=== PATIENT | male | born 1965 | race African-American/Black ===

== ENCOUNTER 2018-03-19 13:30 | Inpatient (IN) | payer BC, OTHER ==
[2018-03-19 16:36] VITALS: BMI 29.2
--- NOTE | 2018-03-19 21:03 | HP ---
COWS - Scale Resting Pulse: 1= [place] 81-100 Sweatin= Chills/Flushing Restless Observation: 5= Unable to Sit Still Pupil Size: 0= Normal to Room Light Bone or Joint Aches: 4=Acute Joint/Muscle Pain Runny Nose/ Eye Tearin= Runny Nose/Eyes GI Upset > 30mins: 2= Nausea/Diarrhea Tremor Observation: 2= Slight Tremor Visible Yawning Observation: 0= None Anxiety or Irritability: 2=Irritable/Anxious Goose Flesh Skin: 3=Piloerection COWS Score: 22 CIWA Score - CIWA Score Nausea/Vomitin Muscle Tremors: 3 Anxiety: 4-Mod. Anxious/Guarded Agitation: 4-Moderately Restless Paroxysmal Sweats: 3 Orientation: 2-Disoriented Date<2 days Tacttile Disturbances: 0-None Auditory Disturbances: 0-None Visual Disturbances: 0-None Headache: 2-Mild CIWA-Ar Total Score: 21 Admission ROS S - HPI Chief Complaint: C/O WITHDRAWAL SX'S. SEEKING DETO FROM ALCOHOL AND HEROIN Allergies/Adverse Reactions: Allergies Allergy/AdvReac Type Severity Reaction Status Date / Time pork derived (porcine) Allergy Verified 03/19/18 16:50 History of Present Illness: 52 Y.O. MLAE WITH ALCOHOLISM AND HEROIN DEPENDENCE HERE FOR DETOX. CLIENT IS KNOWN TO THIS PROGRAM, LAST HERE 2010. REPORTS LAST DETOX EARLIER THIS YEAR AT [facility]. REPORTS LONGEST CLEAN TIME 9 YEARS RELAPSING 1 YEAR AGO. CLIENT WAS REFERRED BY [facility] AFTER PRESENTING THERE FOR DETOX. C/O WITHDRAWAL SX'S. DENIES SOB, C.P., SEIZURE D/O, PAST/PRESENT-SI. REPORTS HX/O BLACK OUTS PMHX:DOES NOT WANT TO SHARE PSYCH: DENIES Exam Limitations: No Limitations - Ebola screening Have you traveled outside of the country in the last 21 days: No Have you had contact with anyone from an Ebola affected area: No Have you been sick,other than usual withdrawal symptoms: No Do you have a fever: No - Review of Systems Constitutional: Chills, Loss of Appetite, Night Sweats, Changes in sleep EENT: reports: Dental Problems (MISSINBG TEETH) Respiratory: reports: No Symptoms reported Cardiac: reports: No Symptoms Reported GI: reports: Constipated, Nausea, Poor Fluid Intake : reports: No Symptoms Reported Musculoskeletal: reports: Joint Pain (R HIP) Integumentary: reports: Change in Hair/Nails, Dryness, Flushing, Rash Neuro: reports: No Symptoms reported Endocrine: reports: No Symptoms Reported Hematology: reports: No Symptoms Reported Psychiatric: reports: No Sypmtoms Reported Other Systems: Reviewed and Negative Patient History - Patient Medical History Hx Anemia: No Hx Asthma: No Hx Chronic Obstructive Pulmonary Disease (COPD): No Hx Cancer: No Hx Cardiac Disorders: No Hx Congestive Heart Failure: No Hx Hypertension: No Hx Hypercholesterolemia: No Hx Pacemaker: No HX Cerebrovascular Accident: No Hx Seizures: No Hx Diabetes: No Hx Gastrointestinal Disorders: No Hx Liver Disease: No Hx Genitourinary Disorders: No Hx Sexually Transmitted Disorders: No Hx Renal Disease (ESRD): No Hx Thyroid Disease: No Hx Human Immunodeficiency Virus (HIV): No Hx Hepatitis C: No Hx Depression: Yes Hx Suicide Attempt: No Hx Bipolar Disorder: No Hx Schizophrenia: No Other Medical History: DENIES - Patient Surgical History Past Surgical History: No Anesthesia Reaction: No - Smoking Cessation Smoking history: Current every day smoker Have you smoked in the past 12 months: Yes Aproximately how many cigarettes per day: 20 Cigars Per Day: 0 Hx Chewing Tobacco Use: No Initiated information on smoking cessation: Yes 'Breaking Loose' booklet given: 03/19/18 - Substances Abused Heroin Route: SNIFF Frequency: Daily Amount used: 6 BAGS Age of first use: 18 Date of Last Use: 03/19/18 Alcohol Route: Oral Frequency: Daily Amount used: 2/6 PACKS Age of first use: 9 Date of Last Use: 03/19/18 Family Disease History - Family Disease History Family History: Denies Admission Physical Exam S - Vital Signs Vital Signs: Vital Signs - 24 hr 03/19/18 16:33 Temperature 98.1 F Pulse Rate 91 H Respiratory 20 Rate Blood Pressure 148/84 - Physical General Appearance: Yes: Appropriately Dressed, Mild Distress, Tremorous, Sweating HEENTM: Yes: EOMI, Normocephalic, Normal Voice, BETTY, Pharynx Normal, Other ( DRY MM) Respiratory: Yes: Chest Non-Tender, Lungs Clear, Normal Breath Sounds, No Respiratory Distress, No Accessory Muscle Use Neck: Yes: No masses,lesions,Nodules, Supple, Trachea in good position Breast: Yes: Breast Exam Deferred Cardiology: Yes: Regular Rhythm, Regular Rate, S1, S2 Abdominal: Yes: Non Tender, Soft, Increased Bowel Sounds Genitourinary: Yes: Other (NO C/O) Back: Yes: Normal Inspection Musculoskeletal: Yes: full range of Motion, Gait Steady Extremities: Yes: Normal Capillary Refill, Normal Range of Motion, Non-Tender, Tremors, Other (LEFT THUMB ABRASION) Neurological: Yes: Alert, Motor Strength 5/5, Disoriented (TO DATE), Depressed Affect Integumentary: Yes: Warm, Moist, Other (FORMICATION) Lymphatic: Yes: Within Normal Limits - Diagnostic (1) Alcohol dependence with uncomplicated withdrawal Current Visit: Yes Status: Acute (2) Opioid dependence with withdrawal Current Visit: Yes Status: Acute (3) Cocaine abuse, uncomplicated Current Visit: Yes Status: Acute (4) Cannabis abuse, uncomplicated Current Visit: Yes Status: Acute (5) Nicotine dependence Current Visit: Yes Status: Acute (6) Dry mucous membranes Current Visit: Yes Status: Acute (7) At risk for dehydration due to poor fluid intake Current Visit: Yes Status: Acute (8) Substance induced mood disorder Current Visit: Yes Status: Acute Cleared for Admission [facility] - Detox or Rehab [facility] Level of Care: Medically Managed Detox Regimen/Protocol: Methadone/Librium Claeared for Rehab Admission: No [facility] Breath Alcohol Content Breath Alcohol Content: 0 Urine Drug Screen - Results Drug Screen Negative: No Urine Drug Screen Results: GRIS-Cocaine, OPI-Opiates
[2018-03-19] MEDS ORDERED: chlordiazePOXIDE HCL 25 MG CAPSULE PO PRN (21:18)
[2018-03-19] MEDS ORDERED: METHADONE HCL 10 MG TABLET (FOR DETOX USE ONLY) PO ONE ×2 (21:18→23:00)
[2018-03-19] MEDS ORDERED: guaiFENesin/D-METHORPHAN HB 10 ML UNIT-DOSE CUPS PO PRN (21:18)
[2018-03-19] MEDS ORDERED: NICOTINE POLACRILEX 2 MG GUM BC PRN (21:18)
[2018-03-19] MEDS ORDERED: MAGNESIUM HYDROX 2400MG/30ML ORAL SUSPENSION 30 ML CUP PO PRN (21:18)
[2018-03-19] MEDS ORDERED: MAGNESIUM CITRATE 300 ML BOTTLE PO PRN (21:18)
[2018-03-19] MEDS ORDERED: P-EPHED 60MG/TRIPROLIDI 2.5MG TABLET PO PRN (21:18)
[2018-03-19] MEDS ORDERED: MENTHOL/PHENOL 1 EACH UD MM PRN (21:18)
[2018-03-19] MEDS ORDERED: ACETAMINOPHEN 325 MG TABLET (FP) PO PRN (21:18)
[2018-03-19] MEDS ORDERED: IBUPROFEN 400 MG TABLET (FP) PO PRN (21:18)
[2018-03-19] MEDS ORDERED: LOPERAMIDE HCL 2 MG CAPSULE PO PRN (21:18)
[2018-03-19] MEDS ORDERED: MELATONIN 5 MG TABLETS PO PRN (22:00)
[2018-03-19] MEDS: chlordiazePOXIDE HCL 25 MG CAPSULE PO SCH (22:21)
[2018-03-19] MEDS: THIAMINE HCL 100 MG TABLET (FP) PO SCH (22:22)
[2018-03-20 01:17] LABS: URINE APPEARANCE CLEAR; URINE BILIRUBIN NEGATIVE (<2.0 mg/dL); URINE COLOR YELLOW; URINE GLUCOSE (UA) NEGATIVE (NEGATIVE); URINE KETONE NEGATIVE (NEGATIVE); URINE LEUK ESTERASE NEGATIVE (NEGATIVE); URINE NITRITE NEGATIVE (NEGATIVE); URINE PROTEIN NEGATIVE (NEGATIVE); URINE UROBILINOGEN NEGATIVE mg/dL (0.2-1.0)
[2018-03-20] MEDS: chlordiazePOXIDE HCL 25 MG CAPSULE PO SCH ×4 (05:33→22:14)
[2018-03-20] MEDS ORDERED: METHADONE HCL 10 MG TABLET (FOR DETOX USE ONLY) PO SCH (10:00)
[2018-03-20] MEDS: PRENATAL VITAMINS W/ FOLIC ACID TABLET (FP) PO SCH (10:32)
[2018-03-20] MEDS: BACITRACIN 0.9 GM PACKET TP SCH (10:32)
[2018-03-20 10:57] LABS: CHLORIDE 105 mmol/L (98-107); SODIUM 141 mmol/L (136-145)
[2018-03-20 11:13] LABS: ALBUMIN 3.1 g/dl (3.4-5.0); ALK PHOS 47 U/L (45-117); ANION GAP 9 MMOL/L (8-16); BILIRUBIN,TOTAL 0.3 mg/dL (0.2-1.0); BLOOD UREA NITROGEN 14 mg/dL (7-18); CALCIUM 8.1 mg/dL (8.5-10.1); CO2 27 mmol/L (21-32); GLUCOSE,RANDOM 91 mg/dL (74-106); SGOT/AST 71 U/L (15-37); SGPT/ALT 45 U/L (12-78); TOT PROT 6.4 g/dl (6.4-8.2)
[2018-03-20 11:36] LABS: HEMATOCRIT 38.1 % (35.4-49); HEMOGLOBIN 12.7 GM/dL (11.7-16.9); MCH 28.7 pg (25.7-33.7); MCHC 33.4 g/dl (32.0-35.9); MEAN CELL VOLUME 86.1 fl (80-96); MEAN PLT VOLUME 7.3 fl (7.5-11.1); PLATELET COUNT 255 K/MM3 (134-434); RBC 4.43 M/mm3 (4.00-5.60); RDW 14.8 % (11.9-15.9); WHITE BLOOD COUNT 7.2 K/mm3 (4.0-10.0)
--- NOTE | 2018-03-20 12:43 | PN ---
S CIWA - CIWA Score Nausea/Vomitin-No Nausea/No Vomiting Muscle Tremors: 4-Moderate,w/Arms Extend Anxiety: 4-Mod. Anxious/Guarded Agitation: 4-Moderately Restless Paroxysmal Sweats: 1-Minimal Palms Moist Orientation: 0-Oriented Tacttile Disturbances: 0-None Auditory Disturbances: 0-None Visual Disturbances: 0-None Headache: 0-None Present CIWA-Ar Total Score: 13 BHS COWS - Scale Resting Pulse: 2= [place] 101-120 Sweatin= Chills/Flushing Restless Observation: 3= Extraneous Movement Pupil Size: 0= Normal to Room Light Bone or Joint Aches: 4=Acute Joint/Muscle Pain Runny Nose/ Eye Tearin= None GI Upset > 30mins: 0= None Tremor Observation of Outstretched Hands: 2= Slight Tremor Visible Yawning Observation: 0= None Anxiety or Irritability: 2=Irritable/Anxious Goose Flesh Skin: 0=Smooth Skin COWS Score: 14 S Progress Note (SOAP) Subjective: ANXIETY,SLIGHT TREMORS, SWEATS. ALERT O X 3. OOB AMBULATING WIT STEADY GAIT. Objective: 03/20/18 12:45 Vital Signs 03/20/18 03/20/18 03/20/18 06:21 06:30 10:31 Temperature 98.1 F 98.1 F Pulse Rate 101 H 101 H Respiratory 18 18 20 Rate Blood Pressure 132/78 118/71 Laboratory Tests 03/20/18 03/20/18 03/20/18 00:40 06:00 06:00 WBC 7.2 RBC 4.43 Hgb 12.7 Hct 38.1 MCV 86.1 MCH 28.7 MCHC 33.4 RDW 14.8 Plt Count 255 MPV 7.3 L Sodium 141 Potassium 4.0 Chloride 105 Carbon Dioxide 27 Anion Gap 9 BUN 14 Creatinine 1.0 Creat Clearance w eGFR > 60 Random Glucose 91 Calcium 8.1 L Total Bilirubin 0.3 AST 71 H ALT 45 Alkaline Phosphatase 47 Total Protein 6.4 Albumin 3.1 L Urine Color Yellow Urine Appearance Clear Urine pH 5.0 Ur Specific [place] 1.014 Urine Protein Negative Urine Glucose (UA) Negative Urine Ketones Negative Urine Blood Negative Urine Nitrite Negative Urine Bilirubin Negative Urine Urobilinogen Negative Ur Leukocyte Esterase Negative Assessment: 03/20/18 12:46 WITHDRAWAL SX Plan: CONTINUE DETOX
[2018-03-20] MEDS: NICOTINE 21 MG/24 HOURS TOPICAL PATCH TD SCH (13:36)
--- NOTE | 2018-03-20 13:47 | EKG ---
Test Reason : Blood Pressure : / mmHG Vent. Rate : 094 BPM Atrial Rate : 094 BPM P-R Int : 132 ms QRS Dur : 086 ms QT Int : 366 ms P-R-T Axes : 063 058 021 degrees QTc Int : 457 ms NORMAL SINUS RHYTHM NONSPECIFIC T WAVE ABNORMALITY ABNORMAL ECG WHEN COMPARED WITH ECG OF 19-MAR-2018 22:01, NO SIGNIFICANT CHANGE WAS FOUND Confirmed by ANABEL MUNSON MD ([id number]) on 03/20/2018 1:47:08 PM Referred By: Confirmed By:ANABEL MUNSON MD
--- NOTE | 2018-03-20 13:48 | EKG ---
Test Reason : Blood Pressure : / mmHG Vent. Rate : 095 BPM Atrial Rate : 095 BPM P-R Int : 126 ms QRS Dur : 086 ms QT Int : 354 ms P-R-T Axes : 063 065 029 degrees QTc Int : 444 ms NORMAL SINUS RHYTHM NONSPECIFIC T WAVE ABNORMALITY ABNORMAL ECG NO PREVIOUS ECGS AVAILABLE Confirmed by JEIMY EVANS, ANABEL ([id number]) on 03/20/2018 1:48:25 PM Referred By: Confirmed By:ANABEL MUNSON MD
[2018-03-20] MEDS: MAG HYDROX/AL HYDROX/SIMETH 30 ML UNIT-DOSE CUP PO PRN (14:01)
--- NOTE | 2018-03-20 16:32 | CONSULT ---
[facility] Psychiatric Consult - Data Date of interview: 03/20/18 Admission source: [facility] Identifying data: Patient is a 52 year old male, father of one, unemployed (denies receiving financial assistance), and is currently homeless. This is patient's first admission to detox at [facility]. Pt. admitted to for opiate dependence. Substance Abuse History: Smoking Cessation. Smoking history: Current every day smoker. Have you smoked in the past 12 months: Yes. Aproximately how many cigarettes per day: 20. Cigars Per Day: 0. Hx Chewing Tobacco Use: No. Initiated information on smoking cessation: Yes. 'Breaking Loose' booklet given : 03/19/18. - Substances Abused. Heroin. Route: SNIFF. Frequency: Daily. Amount used: 6 BAGS. Age of first use: 18. Date of Last Use: 03/19/18. Alcohol. Route: Oral. Frequency: Daily. Amount used: 2/6 PACKS. Age of first use: 9. Date of Last Use: 03/19/18 Medical History: denies. Psychiatric History: Pt. denies h/o psychiatric hospitalization, outpatient care , and suicide attempt. Physical/Sexual Abuse/Trauma History: denies. Mental Status Exam - Mental Status Exam Alert and Oriented to: Time, Place, Person Cognitive Function: Good Patient Appearance: Well Groomed Mood: Withdrawn, Euthymic Affect: Mood Congruent Patient Behavior: Fatigued, Guarded, Cooperative Speech Pattern: Appropriate Voice Loudness: Normal Thought Process: Goal Oriented Thought Disorder: Not Present Hallucinations: Denies Suicidal Ideation: Denies Homicidal Ideation: Denies Insight/Judgement: Poor Sleep: Fair Appetite: Fair Muscle strength/Tone: Normal Gait/Station: Normal Psychiatric Findings - Problem List ([place] 1, 2,3) (1) Alcohol dependence with uncomplicated withdrawal Current Visit: Yes Status: Acute (2) Cocaine dependence, uncomplicated Current Visit: Yes Status: Acute (3) Opioid dependence with withdrawal Current Visit: Yes Status: Acute (4) Substance induced mood disorder Current Visit: Yes Status: Acute - Initial Treatment Plan Initial Treatment Plan: Psychoeducation provided. Detoxification in progress. Observation.
[2018-03-20] MEDS: THIAMINE HCL 100 MG TABLET (FP) PO SCH (22:14)
[2018-03-21] MEDS: chlordiazePOXIDE HCL 25 MG CAPSULE PO SCH ×3 (04:35→17:54)
[2018-03-21] MEDS: PRENATAL VITAMINS W/ FOLIC ACID TABLET (FP) PO SCH (11:00)
[2018-03-21] MEDS: BACITRACIN 0.9 GM PACKET TP SCH (11:00)
[2018-03-21] MEDS: NICOTINE 21 MG/24 HOURS TOPICAL PATCH TD SCH (11:01)
[2018-03-21] MEDS: METHADONE HCL 5 MG TABLET (FOR DETOX USE ONLY) PO SCH (11:01)
--- NOTE | 2018-03-21 14:58 | PN ---
S CIWA - CIWA Score Nausea/Vomitin-No Nausea/No Vomiting Muscle Tremors: 4-Moderate,w/Arms Extend Anxiety: 4-Mod. Anxious/Guarded Agitation: 4-Moderately Restless Paroxysmal Sweats: 1-Minimal Palms Moist Orientation: 0-Oriented Tacttile Disturbances: 0-None Auditory Disturbances: 0-None Visual Disturbances: 0-None Headache: 0-None Present CIWA-Ar Total Score: 13 BHS COWS - Scale Resting Pulse: 1= [place] 81-100 Sweatin= Chills/Flushing Restless Observation: 3= Extraneous Movement Pupil Size: 0= Normal to Room Light Bone or Joint Aches: 4=Acute Joint/Muscle Pain Runny Nose/ Eye Tearin= Nasal Congestion GI Upset > 30mins: 1= Stomach Cramp Tremor Observation of Outstretched Hands: 1= Tremor [place], Not Seen Yawning Observation: 1= 1-2x During Session Anxiety or Irritability: 2=Irritable/Anxious Goose Flesh Skin: 0=Smooth Skin COWS Score: 15 S Progress Note (SOAP) Subjective: SLIGHT ANXIETY,SWEATS. OOB, NAD. Objective: 03/21/18 15:01 Vital Signs 03/21/18 03/21/18 09:48 13:47 Temperature 97.5 F L 97.0 F L Pulse Rate 102 H 99 H Respiratory 20 20 Rate Blood Pressure 111/61 140/92 Laboratory Tests 03/20/18 03/20/18 03/20/18 00:40 06:00 06:00 WBC 7.2 RBC 4.43 Hgb 12.7 Hct 38.1 MCV 86.1 MCH 28.7 MCHC 33.4 RDW 14.8 Plt Count 255 MPV 7.3 L Sodium 141 Potassium 4.0 Chloride 105 Carbon Dioxide 27 Anion Gap 9 BUN 14 Creatinine 1.0 Creat Clearance w eGFR > 60 Random Glucose 91 Calcium 8.1 L Total Bilirubin 0.3 AST 71 H ALT 45 Alkaline Phosphatase 47 Total Protein 6.4 Albumin 3.1 L Urine Color Yellow Urine Appearance Clear Urine pH 5.0 Ur Specific [place] 1.014 Urine Protein Negative Urine Glucose (UA) Negative Urine Ketones Negative Urine Blood Negative Urine Nitrite Negative Urine Bilirubin Negative Urine Urobilinogen Negative Ur Leukocyte Esterase Negative RPR Titer 03/20/18 06:00 WBC RBC Hgb Hct MCV MCH MCHC RDW Plt Count MPV Sodium Potassium Chloride Carbon Dioxide Anion Gap BUN Creatinine Creat Clearance w eGFR Random Glucose Calcium Total Bilirubin AST ALT Alkaline Phosphatase Total Protein Albumin Urine Color Urine Appearance Urine pH Ur Specific [place] Urine Protein Urine Glucose (UA) Urine Ketones Urine Blood Urine Nitrite Urine Bilirubin Urine Urobilinogen Ur Leukocyte Esterase RPR Titer Nonreactive Assessment: 03/21/18 15:01 WITHDRAWAL SX Plan: CONTINUE DETOX
[2018-03-21] MEDS: chlordiazePOXIDE 5 MG CAPSULE PO SCH (22:08)
[2018-03-21] MEDS: THIAMINE HCL 100 MG TABLET (FP) PO SCH (22:08)
[2018-03-22] MEDS: chlordiazePOXIDE 5 MG CAPSULE PO SCH ×3 (06:01→18:27)
[2018-03-22] MEDS: MAG HYDROX/AL HYDROX/SIMETH 30 ML UNIT-DOSE CUP PO PRN (10:27)
[2018-03-22] MEDS: BACITRACIN 0.9 GM PACKET TP SCH (10:49)
[2018-03-22] MEDS: NICOTINE 21 MG/24 HOURS TOPICAL PATCH TD SCH (10:50)
[2018-03-22] MEDS: PRENATAL VITAMINS W/ FOLIC ACID TABLET (FP) PO SCH (10:50)
[2018-03-22] MEDS: METHADONE HCL 5 MG TABLET (FOR DETOX USE ONLY) PO SCH (10:50)
--- NOTE | 2018-03-22 11:04 | PN ---
BHS Progress Note (SOAP) Subjective: ANXIETY,SWEATS,FATIGUE. DETOX PROCEEDING WELL PER PROTOCOL. Objective: 03/22/18 11:03 Vital Signs 03/22/18 03/22/18 03/22/18 03:30 06:53 09:46 Temperature 98.3 F 97.1 F L Pulse Rate 90 107 H Respiratory 18 18 20 Rate Blood Pressure 133/79 139/88 Laboratory Tests 03/20/18 03/20/18 03/20/18 00:40 06:00 06:00 WBC 7.2 RBC 4.43 Hgb 12.7 Hct 38.1 MCV 86.1 MCH 28.7 MCHC 33.4 RDW 14.8 Plt Count 255 MPV 7.3 L Sodium 141 Potassium 4.0 Chloride 105 Carbon Dioxide 27 Anion Gap 9 BUN 14 Creatinine 1.0 Creat Clearance w eGFR > 60 Random Glucose 91 Calcium 8.1 L Total Bilirubin 0.3 AST 71 H ALT 45 Alkaline Phosphatase 47 Total Protein 6.4 Albumin 3.1 L Urine Color Yellow Urine Appearance Clear Urine pH 5.0 Ur Specific [place] 1.014 Urine Protein Negative Urine Glucose (UA) Negative Urine Ketones Negative Urine Blood Negative Urine Nitrite Negative Urine Bilirubin Negative Urine Urobilinogen Negative Ur Leukocyte Esterase Negative RPR Titer 03/20/18 06:00 WBC RBC Hgb Hct MCV MCH MCHC RDW Plt Count MPV Sodium Potassium Chloride Carbon Dioxide Anion Gap BUN Creatinine Creat Clearance w eGFR Random Glucose Calcium Total Bilirubin AST ALT Alkaline Phosphatase Total Protein Albumin Urine Color Urine Appearance Urine pH Ur Specific [place] Urine Protein Urine Glucose (UA) Urine Ketones Urine Blood Urine Nitrite Urine Bilirubin Urine Urobilinogen Ur Leukocyte Esterase RPR Titer Nonreactive Assessment: 03/22/18 11:04 WITHDRAWAL SX Plan: CONTINUE DETOX
[2018-03-22] MEDS: chlordiazePOXIDE HCL 10 MG CAPSULE PO SCH (22:34)
[2018-03-22] MEDS: THIAMINE HCL 100 MG TABLET (FP) PO SCH (22:34)
[2018-03-23] MEDS: chlordiazePOXIDE HCL 10 MG CAPSULE PO SCH ×3 (05:51→17:37)
[2018-03-23] MEDS ORDERED: METHADONE HCL 10 MG TABLET (FOR DETOX USE ONLY) PO SCH (10:00)
[2018-03-23] MEDS: PRENATAL VITAMINS W/ FOLIC ACID TABLET (FP) PO SCH (10:04)
[2018-03-23] MEDS: BACITRACIN 0.9 GM PACKET TP SCH (10:04)
[2018-03-23] MEDS: NICOTINE 21 MG/24 HOURS TOPICAL PATCH TD SCH (10:05)
[2018-03-23] MEDS: MAG HYDROX/AL HYDROX/SIMETH 30 ML UNIT-DOSE CUP PO PRN (13:40)
--- NOTE | 2018-03-23 14:55 | PN ---
BHS Progress Note (SOAP) Subjective: Denies any complaints, appears anxious Objective: 03/23/18 14:55 Last Vital Signs Temp Pulse Resp BP Pulse Ox 97.2 F L 76 18 133/88 03/23/18 13:13 03/23/18 13:13 03/23/18 13:13 03/23/18 13:13 Laboratory Tests 03/20/18 03/20/18 03/20/18 00:40 06:00 06:00 WBC 7.2 RBC 4.43 Hgb 12.7 Hct 38.1 MCV 86.1 MCH 28.7 MCHC 33.4 RDW 14.8 Plt Count 255 MPV 7.3 L Sodium 141 Potassium 4.0 Chloride 105 Carbon Dioxide 27 Anion Gap 9 BUN 14 Creatinine 1.0 Creat Clearance w eGFR > 60 Random Glucose 91 Calcium 8.1 L Total Bilirubin 0.3 AST 71 H ALT 45 Alkaline Phosphatase 47 Total Protein 6.4 Albumin 3.1 L Urine Color Yellow Urine Appearance Clear Urine pH 5.0 Ur Specific [place] 1.014 Urine Protein Negative Urine Glucose (UA) Negative Urine Ketones Negative Urine Blood Negative Urine Nitrite Negative Urine Bilirubin Negative Urine Urobilinogen Negative Ur Leukocyte Esterase Negative RPR Titer 03/20/18 06:00 WBC RBC Hgb Hct MCV MCH MCHC RDW Plt Count MPV Sodium Potassium Chloride Carbon Dioxide Anion Gap BUN Creatinine Creat Clearance w eGFR Random Glucose Calcium Total Bilirubin AST ALT Alkaline Phosphatase Total Protein Albumin Urine Color Urine Appearance Urine pH Ur Specific [place] Urine Protein Urine Glucose (UA) Urine Ketones Urine Blood Urine Nitrite Urine Bilirubin Urine Urobilinogen Ur Leukocyte Esterase RPR Titer Nonreactive Labs reviewed Assessment: 03/23/18 14:55 Withdrawal symptoms Plan: Continue detox
[2018-03-23] MEDS: THIAMINE HCL 100 MG TABLET (FP) PO SCH (22:04)
[2018-03-24] MEDS ORDERED: METHADONE HCL 5 MG TABLET (FOR DETOX USE ONLY) PO SCH (06:00)
[2018-03-24 06:16] VITALS: BP 126/70; PULSE 87; TEMP 97.9
[2018-03-24] MEDS: BACITRACIN 0.9 GM PACKET TP SCH (10:34)
[2018-03-24] MEDS: PRENATAL VITAMINS W/ FOLIC ACID TABLET (FP) PO SCH (10:34)
[2018-03-24] MEDS: NICOTINE 21 MG/24 HOURS TOPICAL PATCH TD SCH (10:34)
--- NOTE | 2018-03-24 12:50 | PN ---
BHS Progress Note (SOAP) Subjective: DETOX COMPLETED. ALERT O X 3. NAD. PT REPORTS HAMMOND GOES TO [facility] FOR PRIMARY CARE NEEDED. Objective: 03/24/18 12:49 Vital Signs 03/24/18 06:16 Temperature 97.9 F Pulse Rate 87 Respiratory 18 Rate Blood Pressure 126/70 Laboratory Tests 03/20/18 03/20/18 03/20/18 00:40 06:00 06:00 WBC 7.2 RBC 4.43 Hgb 12.7 Hct 38.1 MCV 86.1 MCH 28.7 MCHC 33.4 RDW 14.8 Plt Count 255 MPV 7.3 L Sodium 141 Potassium 4.0 Chloride 105 Carbon Dioxide 27 Anion Gap 9 BUN 14 Creatinine 1.0 Creat Clearance w eGFR > 60 Random Glucose 91 Calcium 8.1 L Total Bilirubin 0.3 AST 71 H ALT 45 Alkaline Phosphatase 47 Total Protein 6.4 Albumin 3.1 L Urine Color Yellow Urine Appearance Clear Urine pH 5.0 Ur Specific [place] 1.014 Urine Protein Negative Urine Glucose (UA) Negative Urine Ketones Negative Urine Blood Negative Urine Nitrite Negative Urine Bilirubin Negative Urine Urobilinogen Negative Ur Leukocyte Esterase Negative RPR Titer 03/20/18 06:00 WBC RBC Hgb Hct MCV MCH MCHC RDW Plt Count MPV Sodium Potassium Chloride Carbon Dioxide Anion Gap BUN Creatinine Creat Clearance w eGFR Random Glucose Calcium Total Bilirubin AST ALT Alkaline Phosphatase Total Protein Albumin Urine Color Urine Appearance Urine pH Ur Specific [place] Urine Protein Urine Glucose (UA) Urine Ketones Urine Blood Urine Nitrite Urine Bilirubin Urine Urobilinogen Ur Leukocyte Esterase RPR Titer Nonreactive Assessment: 03/24/18 12:49 MEDICALLY STABLE Plan: D/C PT TODAY.
== END 2018-03-24 09:25 | disposition home or self-care (01) | DRG 897 ==
LOC: YASAS 13:30 → Y3N 17:32
PROC: HZ2ZZZZ Detoxification Services for Substance Abuse Treatment (ICD-10-PCS; principal; 2018-03-19)
DX: F11.23 Opioid dependence with withdrawal (principal); F14.20 Cocaine dependence, uncomplicated; F10.230 Alcohol dependence with withdrawal, uncomplicated; F12.10 Cannabis abuse, uncomplicated; F17.213 Nicotine dependence, cigarettes, with withdrawal; F19.24 Other psychoactive substance dependence with psychoactive substance-induced mood disorder; R68.2 Dry mouth, unspecified; Z59.0 Homelessness
CPT/HCPCS: 36415; 80053; 81003; 85027; 86593; 93005; 93010

== ENCOUNTER 2018-05-13 18:10 | Inpatient (IN) | payer BC, OTHER ==
--- NOTE | 2018-05-13 19:15 | HP ---
COWS - Scale Resting Pulse: 1= [place] 81-100 Sweatin=Flushed/Facial Moisture Restless Observation: 1= Difficult to Sit Still Pupil Size: 1= Pupils >than Normal Bone or Joint Aches: 2= Severe Diffuse Aches Runny Nose/ Eye Tearin= Runny Nose/Eyes GI Upset > 30mins: 2= Nausea/Diarrhea Tremor Observation: 1= Tremor [place], Not Seen Yawning Observation: 1= 1-2x During Session Anxiety or Irritability: 1=Feels Anxious/Irritable Goose Flesh Skin: 0=Smooth Skin COWS Score: 14 CIWA Score - CIWA Score Nausea/Vomitin Muscle Tremors: 2 Anxiety: 2 Agitation: 1-Slight > Activity Paroxysmal Sweats: 2 Orientation: 1-Uncertain about Date Tacttile Disturbances: 0-None Auditory Disturbances: 1-Very Mild Visual Disturbances: 1-Very Mild Sensitivity Headache: 1-Very Mild CIWA-Ar Total Score: 13 Admission ROS BHS - HPI Chief Complaint: WITHDRAWAL SYMPTOMS Allergies/Adverse Reactions: Allergies Allergy/AdvReac Type Severity Reaction Status Date / Time pork derived (porcine) Allergy Verified 03/19/18 16:50 History of Present Illness: 53 Y.O. MAN WITH A HISTORY OF OPIOID AND ALCOHOL DEPENDENCE IS HERE SEEKING DETOX SERVICES. HE WAS LAST HERE FOR DETOX FROM 03/19/18-03/24/18. LONGEST PERIOD OF HEROIN AND ALCOHOL ABSTINENCE HAS BEEN 9 YEARS. Exam Limitations: No Limitations - Ebola screening Have you traveled outside of the country in the last 21 days: No (N) Have you had contact with anyone from an Ebola affected area: No Do you have a fever: No - Review of Systems Constitutional: Diaphoresis, Loss of Appetite, Night Sweats, Changes in sleep, Unexplained wgt Loss EENT: reports: Tearing Respiratory: reports: No Symptoms reported Cardiac: reports: Lightheadedness GI: reports: Diarrhea, Nausea, Abdominal cramping : reports: No Symptoms Reported Musculoskeletal: reports: Back Pain Integumentary: reports: No Symptoms Reported Neuro: reports: Headache, Tremors Endocrine: reports: No Symptoms Reported Hematology: reports: No Symptoms Reported Psychiatric: reports: Mood/Affect Appropiate Other Systems: Reviewed and Negative Patient History - Patient Medical History Hx Anemia: No Hx Asthma: No Hx Chronic Obstructive Pulmonary Disease (COPD): No Hx Cancer: No Hx Cardiac Disorders: No Hx Congestive Heart Failure: No Hx Hypertension: No Hx Hypercholesterolemia: No Hx Pacemaker: No HX Cerebrovascular Accident: No Hx Seizures: No Hx Dementia: No Hx Diabetes: No Hx Gastrointestinal Disorders: No Hx Liver Disease: No Hx Genitourinary Disorders: No Hx Sexually Transmitted Disorders: No Hx Renal Disease (ESRD): No Hx Thyroid Disease: No Hx Human Immunodeficiency Virus (HIV): No Hx Hepatitis C: No Hx Depression: Yes Hx Suicide Attempt: No Hx Bipolar Disorder: No Hx Schizophrenia: No - Patient Surgical History Past Surgical History: Yes Other Surgical History: REMOVAL OF PROSTATE CA-2015 Anesthesia Reaction: Yes - PPD History Previous Implant?: Yes Documented Results: Positive w/o proof PPD to be Administered?: No - Reproductive History Patient is a Female of Child Bearing Age (11 -55 yrs old): No - Smoking Cessation Smoking history: Current every day smoker Have you smoked in the past 12 months: Yes Aproximately how many cigarettes per day: 10 Cigars Per Day: 0 Hx Chewing Tobacco Use: No Initiated information on smoking cessation: Yes 'Breaking Loose' booklet given: 05/13/18 - Substance & Tx. History Hx Alcohol Use: Yes Hx Substance Use: Yes Substance Use Type: Alcohol, Heroin Hx Substance Use Treatment: Yes (DETOX: 03/2018 @ [facility] ) - Substances Abused Alcohol Route: Inhalation Frequency: Daily Amount used: 3 [id number] Age of first use: 9 Date of Last Use: 05/12/18 Heroin Route: Inhalation Frequency: Daily Amount used: 7 BAGS Age of first use: 22 Date of Last Use: 05/13/18 Family Disease History - Family Disease History Family History: Denies Admission Physical Exam [facility] - Vital Signs Vital Signs: Vital Signs 05/13/18 19:31 Temperature 97.4 F L Pulse Rate 95 H Respiratory 20 Rate Blood Pressure 147/86 - Physical General Appearance: Yes: Tremorous, Anxious HEENTM: Yes: Hearing grossly Normal, Normocephalic, Normal Voice Respiratory: Yes: Chest Non-Tender, Lungs Clear, Normal Breath Sounds, No Respiratory Distress, No Accessory Muscle Use Neck: Yes: No masses,lesions,Nodules Breast: Yes: Breast Exam Deferred Cardiology: Yes: Regular Rhythm, Regular Rate Abdominal: Yes: Normal Bowel Sounds, Non Tender Genitourinary: Yes: Other (NO COMPLAINTS REPORTED) Back: Yes: Normal Inspection Musculoskeletal: Yes: full range of Motion, Gait Steady Extremities: Yes: Normal Capillary Refill, Normal Inspection, Tremors Neurological: Yes: Fully Oriented, Normal Mood/Affect, Normal Response Integumentary: Yes: Normal Color, Dry, Warm Lymphatic: Yes: Within Normal Limits - Diagnostic (1) History of prostate cancer Current Visit: Yes Status: Acute (2) History of positive PPD Current Visit: Yes Status: Chronic Comment: HISTORY OF +PPD. PROVIDED A REPORT FROM 11/29/17 CXR. RESULTS: NO ACTIVE PULMONARY PROCESS. (3) Alcohol dependence with uncomplicated withdrawal Current Visit: Yes Status: Chronic (4) Nicotine dependence Current Visit: Yes Status: Chronic Qualifiers: Nicotine product type: cigarettes Substance use status: in withdrawal Qualified Code(s): F17.213 - Nicotine dependence, cigarettes, with withdrawal (5) Opioid dependence with withdrawal Current Visit: Yes Status: Chronic Cleared for Admission [facility] - Detox or Rehab [facility] Level of Care: Medically Managed Detox Regimen/Protocol: Methadone/Librium S Breath Alcohol Content Breath Alcohol Content: 0
[2018-05-13 19:33] VITALS: BMI 27.1
[2018-05-13] MEDS ORDERED: hydrOXYzine PAMOATE 50 MG CAPSULE (FP) PO PRN (19:46)
[2018-05-13] MEDS ORDERED: MAG HYDROX/AL HYDROX/SIMETH 30 ML UNIT-DOSE CUP PO PRN (19:46)
[2018-05-13] MEDS ORDERED: MENTHOL/PHENOL 1 EACH UD MM PRN (19:46)
[2018-05-13] MEDS ORDERED: chlordiazePOXIDE HCL 25 MG CAPSULE PO ONE (19:46)
[2018-05-13] MEDS ORDERED: chlordiazePOXIDE HCL 25 MG CAPSULE PO PRN (19:46)
[2018-05-13] MEDS ORDERED: guaiFENesin/D-METHORPHAN HB 10 ML UNIT-DOSE CUPS PO PRN (19:46)
[2018-05-13] MEDS ORDERED: ACETAMINOPHEN 325 MG TABLET (FP) PO PRN (19:46)
[2018-05-13] MEDS ORDERED: IBUPROFEN 400 MG TABLET (FP) PO PRN (19:46)
[2018-05-13] MEDS ORDERED: LOPERAMIDE HCL 2 MG CAPSULE PO PRN (19:46)
[2018-05-13] MEDS ORDERED: MAGNESIUM CITRATE 300 ML BOTTLE PO PRN (19:46)
[2018-05-13] MEDS ORDERED: P-EPHED 60MG/TRIPROLIDI 2.5MG TABLET PO PRN (19:46)
[2018-05-13] MEDS ORDERED: MAGNESIUM HYDROX 2400MG/30ML ORAL SUSPENSION 30 ML CUP PO PRN (19:46)
[2018-05-13] MEDS ORDERED: METHADONE HCL 10 MG TABLET (FOR DETOX USE ONLY) PO ONE ×2 (19:46→23:00)
[2018-05-13] MEDS: THIAMINE HCL 100 MG TABLET (FP) PO SCH (21:58)
[2018-05-13] MEDS ORDERED: MELATONIN 5 MG TABLETS PO PRN (22:00)
[2018-05-13] MEDS: chlordiazePOXIDE HCL 25 MG CAPSULE PO SCH (22:01)
[2018-05-14 01:21] LABS: URINE APPEARANCE CLEAR; URINE BILIRUBIN NEGATIVE (<2.0 mg/dL); URINE COLOR LTYELLOW; URINE GLUCOSE (UA) NEGATIVE (NEGATIVE); URINE KETONE NEGATIVE (NEGATIVE); URINE LEUK ESTERASE NEGATIVE (NEGATIVE); URINE NITRITE NEGATIVE (NEGATIVE); URINE PROTEIN NEGATIVE (NEGATIVE); URINE UROBILINOGEN NEGATIVE mg/dL (0.2-1.0)
[2018-05-14] MEDS: chlordiazePOXIDE HCL 25 MG CAPSULE PO SCH ×4 (05:21→22:12)
[2018-05-14] MEDS ORDERED: METHADONE HCL 10 MG TABLET (FOR DETOX USE ONLY) PO SCH (10:00)
[2018-05-14 10:02] LABS: HEMATOCRIT 35.4 % (35.4-49); HEMOGLOBIN 11.6 GM/dL (11.7-16.9); MCH 27.7 pg (25.7-33.7); MCHC 32.6 g/dl (32.0-35.9); MEAN CELL VOLUME 84.9 fl (80-96); MEAN PLT VOLUME 7.3 fl (7.5-11.1); PLATELET COUNT 287 K/MM3 (134-434); RBC 4.17 M/mm3 (4.00-5.60); RDW 15.4 % (11.9-15.9); WHITE BLOOD COUNT 7.2 K/mm3 (4.0-10.0)
[2018-05-14] MEDS: PRENATAL VITAMINS W/ FOLIC ACID TABLET (FP) PO SCH (10:11)
[2018-05-14 10:33] LABS: ALBUMIN 2.8 g/dl (3.4-5.0); ALK PHOS 46 U/L (45-117); ANION GAP 8 MMOL/L (8-16); BILIRUBIN,TOTAL 0.3 mg/dL (0.2-1); BLOOD UREA NITROGEN 11 mg/dL (7-18); CALCIUM 8.3 mg/dL (8.5-10.1); CHLORIDE 107 mmol/L (98-107); CO2 27 mmol/L (21-32); CREATININE 0.9 mg/dL (0.55-1.3); GLUCOSE,RANDOM 93 mg/dL (74-106); POTASSIUM 3.9 mmol/L (3.5-5.1); SGOT/AST 21 U/L (15-37); SGPT/ALT 24 U/L (13-61); SODIUM 143 mmol/L (136-145); TOT PROT 5.9 g/dl (6.4-8.2)
--- NOTE | 2018-05-14 13:41 | PN ---
[facility] CIWA - CIWA Score Nausea/Vomitin Muscle Tremors: 4-Moderate,w/Arms Extend Anxiety: 4-Mod. Anxious/Guarded Agitation: 3 Paroxysmal Sweats: 3 Orientation: 0-Oriented Tacttile Disturbances: 1-Very Mild Itch/Numbness Auditory Disturbances: 0-None Visual Disturbances: 0-None Headache: 0-None Present CIWA-Ar Total Score: 17 S COWS - Scale Resting Pulse: 1= [place] [id number] Sweatin= Chills/Flushing Restless Observation: 3= Extraneous Movement Pupil Size: 0= Normal to Room Light Bone or Joint Aches: 2= Severe Diffuse Aches Runny Nose/ Eye Tearin= Runny Nose/Eyes GI Upset > 30mins: 3= Vomiting/Diarrhea Tremor Observation of Outstretched Hands: 2= Slight Tremor Visible Yawning Observation: 0= None Anxiety or Irritability: 2=Irritable/Anxious Goose Flesh Skin: 0=Smooth Skin COWS Score: 16 S Progress Note (SOAP) Subjective: Tremor, interrupted sleep, yawning Objective: 05/14/18 13:38 Last Vital Signs Temp Pulse Resp BP Pulse Ox 98.1 F 97 H 20 142/80 05/14/18 13:31 05/14/18 13:31 05/14/18 13:31 05/14/18 13:31 Laboratory Tests 05/13/18 05/14/18 05/14/18 22:49 07:00 07:00 WBC 7.2 RBC 4.17 Hgb 11.6 L Hct 35.4 MCV 84.9 MCH 27.7 MCHC 32.6 RDW 15.4 Plt Count 287 MPV 7.3 L Sodium 143 Potassium 3.9 Chloride 107 Carbon Dioxide 27 Anion Gap 8 BUN 11 Creatinine 0.9 Creat Clearance w eGFR > 60 Random Glucose 93 Calcium 8.3 L Total Bilirubin 0.3 AST 21 ALT 24 Alkaline Phosphatase 46 Total Protein 5.9 L Albumin 2.8 L Urine Color Ltyellow Urine Appearance Clear Urine pH 5.0 Ur Specific [place] 1.012 Urine Protein Negative Urine Glucose (UA) Negative Urine Ketones Negative Urine Blood Negative Urine Nitrite Negative Urine Bilirubin Negative Urine Urobilinogen Negative Ur Leukocyte Esterase Negative RPR Titer 05/14/18 07:00 WBC RBC Hgb Hct MCV MCH MCHC RDW Plt Count MPV Sodium Potassium Chloride Carbon Dioxide Anion Gap BUN Creatinine Creat Clearance w eGFR Random Glucose Calcium Total Bilirubin AST ALT Alkaline Phosphatase Total Protein Albumin Urine Color Urine Appearance Urine pH Ur Specific [place] Urine Protein Urine Glucose (UA) Urine Ketones Urine Blood Urine Nitrite Urine Bilirubin Urine Urobilinogen Ur Leukocyte Esterase RPR Titer Nonreactive Labs reviewed Assessment: 05/14/18 13:40 Withdrawal symptoms Plan: Continue detox Encouraged PO water intake
[2018-05-14] MEDS: THIAMINE HCL 100 MG TABLET (FP) PO SCH (22:12)
[2018-05-15] MEDS: chlordiazePOXIDE HCL 25 MG CAPSULE PO SCH ×3 (05:41→17:22)
[2018-05-15] MEDS: METHADONE HCL 5 MG TABLET (FOR DETOX USE ONLY) PO SCH (10:11)
[2018-05-15] MEDS: PRENATAL VITAMINS W/ FOLIC ACID TABLET (FP) PO SCH (10:12)
--- NOTE | 2018-05-15 10:45 | PN ---
[facility] CIWA - CIWA Score Nausea/Vomitin-Mild Nausea/No Vomiting Muscle Tremors: 1-None Visible, but [place] Anxiety: 2 Agitation: 1-Slight > Activity Paroxysmal Sweats: 2 Orientation: 0-Oriented Tacttile Disturbances: 0-None Auditory Disturbances: 0-None Visual Disturbances: 0-None Headache: 0-None Present CIWA-Ar Total Score: 7 [facility] COWS - Scale Resting Pulse: 1= [place] 81-100 Sweatin= Chills/Flushing Restless Observation: 1= Difficult to Sit Still Pupil Size: 0= Normal to Room Light Bone or Joint Aches: 1= Mild Discomfort Runny Nose/ Eye Tearin= None GI Upset > 30mins: 1= Stomach Cramp Tremor Observation of Outstretched Hands: 1= Tremor [place], Not Seen Yawning Observation: 0= None Anxiety or Irritability: 1=Feels Anxious/Irritable Goose Flesh Skin: 0=Smooth Skin COWS Score: 7 [facility] Progress Note (SOAP) Subjective: PATIENT C/O MILD ANXIETY,NAUSEA, SHAKES AND BODY ACHES. Objective: 05/15/18 10:43 Vital Signs Temperature 97.9 F 05/15/18 09:19 Pulse Rate 110 H 05/15/18 09:19 Respiratory Rate 20 05/15/18 09:19 Blood Pressure 151/92 05/15/18 09:19 O2 Sat by Pulse Oximetry (%) Laboratory Tests 05/13/18 05/14/18 05/14/18 22:49 07:00 07:00 WBC 7.2 RBC 4.17 Hgb 11.6 L Hct 35.4 MCV 84.9 MCH 27.7 MCHC 32.6 RDW 15.4 Plt Count 287 MPV 7.3 L Sodium 143 Potassium 3.9 Chloride 107 Carbon Dioxide 27 Anion Gap 8 BUN 11 Creatinine 0.9 Creat Clearance w eGFR > 60 Random Glucose 93 Calcium 8.3 L Total Bilirubin 0.3 AST 21 ALT 24 Alkaline Phosphatase 46 Total Protein 5.9 L Albumin 2.8 L Urine Color Ltyellow Urine Appearance Clear Urine pH 5.0 Ur Specific [place] 1.012 Urine Protein Negative Urine Glucose (UA) Negative Urine Ketones Negative Urine Blood Negative Urine Nitrite Negative Urine Bilirubin Negative Urine Urobilinogen Negative Ur Leukocyte Esterase Negative RPR Titer 05/14/18 07:00 WBC RBC Hgb Hct MCV MCH MCHC RDW Plt Count MPV Sodium Potassium Chloride Carbon Dioxide Anion Gap BUN Creatinine Creat Clearance w eGFR Random Glucose Calcium Total Bilirubin AST ALT Alkaline Phosphatase Total Protein Albumin Urine Color Urine Appearance Urine pH Ur Specific [place] Urine Protein Urine Glucose (UA) Urine Ketones Urine Blood Urine Nitrite Urine Bilirubin Urine Urobilinogen Ur Leukocyte Esterase RPR Titer Nonreactive SKIN WARM WITH MILD MOISTURE TO CHEST AREA CAR S1S2 RESP CTA BL EXT MILD TREMORS FELT, NO EDEMA, FULL ROM ALERT AND ORIENTED X 3 MILDLY ANXIOUS Assessment: 05/15/18 10:44 WITHDRAWAL SX Plan: CONTINUE DETOX REGIMEN ENCOURAGE ORAL FLUIDS CONTINUE TO MONITOR CLINICALLY
[2018-05-15] MEDS: THIAMINE HCL 100 MG TABLET (FP) PO SCH (22:07)
[2018-05-15] MEDS: chlordiazePOXIDE 5 MG CAPSULE PO SCH (22:07)
[2018-05-16] MEDS: chlordiazePOXIDE 5 MG CAPSULE PO SCH ×3 (05:25→17:33)
[2018-05-16] MEDS: PRENATAL VITAMINS W/ FOLIC ACID TABLET (FP) PO SCH (09:39)
[2018-05-16] MEDS: METHADONE HCL 5 MG TABLET (FOR DETOX USE ONLY) PO SCH (09:39)
--- NOTE | 2018-05-16 12:28 | PN ---
[facility] Progress Note (SOAP) Subjective: Sweating Objective: 05/16/18 12:27 Last Vital Signs Temp Pulse Resp BP Pulse Ox 98.4 F 99 H 18 127/77 05/16/18 09:38 05/16/18 09:38 05/16/18 09:38 05/16/18 09:38 Laboratory Tests 05/13/18 05/14/18 05/14/18 22:49 07:00 07:00 WBC 7.2 RBC 4.17 Hgb 11.6 L Hct 35.4 MCV 84.9 MCH 27.7 MCHC 32.6 RDW 15.4 Plt Count 287 MPV 7.3 L Sodium 143 Potassium 3.9 Chloride 107 Carbon Dioxide 27 Anion Gap 8 BUN 11 Creatinine 0.9 Creat Clearance w eGFR > 60 Random Glucose 93 Calcium 8.3 L Total Bilirubin 0.3 AST 21 ALT 24 Alkaline Phosphatase 46 Total Protein 5.9 L Albumin 2.8 L Urine Color Ltyellow Urine Appearance Clear Urine pH 5.0 Ur Specific [place] 1.012 Urine Protein Negative Urine Glucose (UA) Negative Urine Ketones Negative Urine Blood Negative Urine Nitrite Negative Urine Bilirubin Negative Urine Urobilinogen Negative Ur Leukocyte Esterase Negative RPR Titer 05/14/18 07:00 WBC RBC Hgb Hct MCV MCH MCHC RDW Plt Count MPV Sodium Potassium Chloride Carbon Dioxide Anion Gap BUN Creatinine Creat Clearance w eGFR Random Glucose Calcium Total Bilirubin AST ALT Alkaline Phosphatase Total Protein Albumin Urine Color Urine Appearance Urine pH Ur Specific [place] Urine Protein Urine Glucose (UA) Urine Ketones Urine Blood Urine Nitrite Urine Bilirubin Urine Urobilinogen Ur Leukocyte Esterase RPR Titer Nonreactive Labs reviewed Assessment: 05/16/18 12:27 Withdrawal symptoms Plan: Continue detox Encouraged PO water intake
[2018-05-16] MEDS: THIAMINE HCL 100 MG TABLET (FP) PO SCH (22:08)
[2018-05-16] MEDS: chlordiazePOXIDE HCL 10 MG CAPSULE PO SCH (22:08)
[2018-05-17] MEDS: chlordiazePOXIDE HCL 10 MG CAPSULE PO SCH ×3 (05:20→17:10)
[2018-05-17] MEDS ORDERED: METHADONE HCL 10 MG TABLET (FOR DETOX USE ONLY) PO SCH (10:00)
[2018-05-17] MEDS: PRENATAL VITAMINS W/ FOLIC ACID TABLET (FP) PO SCH (10:17)
--- NOTE | 2018-05-17 13:14 | PN ---
[facility] Progress Note Note: Vital Signs Temperature 97.0 F L 05/17/18 09:20 Pulse Rate 94 H 05/17/18 09:20 Respiratory Rate 20 05/17/18 09:20 Blood Pressure 157/84 05/17/18 09:20 O2 Sat by Pulse Oximetry (%) Laboratory Last Values WBC 7.2 K/mm3 (4.0-10.0) 05/14/18 07:00 RBC 4.17 M/mm3 (4.00-5.60) 05/14/18 07:00 Hgb 11.6 GM/dL (11.7-16.9) L 05/14/18 07:00 Hct 35.4 % (35.4-49) 05/14/18 07:00 MCV 84.9 fl (80-96) 05/14/18 07:00 MCH 27.7 pg (25.7-33.7) 05/14/18 07:00 MCHC 32.6 g/dl (32.0-35.9) 05/14/18 07:00 RDW 15.4 % (11.9-15.9) 05/14/18 07:00 Plt Count 287 K/MM3 (134-434) 05/14/18 07:00 MPV 7.3 fl (7.5-11.1) L 05/14/18 07:00 Sodium 143 mmol/L (136-145) 05/14/18 07:00 Potassium 3.9 mmol/L (3.5-5.1) 05/14/18 07:00 Chloride 107 mmol/L (98-107) 05/14/18 07:00 Carbon Dioxide 27 mmol/L (21-32) 05/14/18 07:00 Anion Gap 8 MMOL/L (8-16) 05/14/18 07:00 BUN 11 mg/dL (7-18) 05/14/18 07:00 Creatinine 0.9 mg/dL (0.55-1.3) 05/14/18 07:00 Creat Clearance w eGFR > 60 (>60) 05/14/18 07:00 Random Glucose 93 mg/dL (74-106) 05/14/18 07:00 Calcium 8.3 mg/dL (8.5-10.1) L 05/14/18 07:00 Total Bilirubin 0.3 mg/dL (0.2-1) 05/14/18 07:00 AST 21 U/L (15-37) 05/14/18 07:00 ALT 24 U/L (13-61) 05/14/18 07:00 Alkaline Phosphatase 46 U/L (45-117) 05/14/18 07:00 Total Protein 5.9 g/dl (6.4-8.2) L 05/14/18 07:00 Albumin 2.8 g/dl (3.4-5.0) L 05/14/18 07:00 Urine Color Ltyellow 05/13/18 22:49 Urine Appearance Clear 05/13/18 22:49 Urine pH 5.0 (5.0-8.0) 05/13/18 22:49 Ur Specific [place] 1.012 (1.010-1.035) 05/13/18 22:49 Urine Protein Negative (NEGATIVE) 05/13/18 22:49 Urine Glucose (UA) Negative (NEGATIVE) 05/13/18 22:49 Urine Ketones Negative (NEGATIVE) 05/13/18 22:49 Urine Blood Negative (NEGATIVE) 05/13/18 22:49 Urine Nitrite Negative (NEGATIVE) 05/13/18 22:49 Urine Bilirubin Negative (<2.0 mg/dL) 05/13/18 22:49 Urine Urobilinogen Negative mg/dL (0.2-1.0) 05/13/18 22:49 Ur Leukocyte Esterase Negative (NEGATIVE) 05/13/18 22:49 RPR Titer Nonreactive (NONREACTIVE) 05/14/18 07:00 c/o of pain on both lower extremities, anxious, interrupted sleep Aox3 no distress no adventitious breath sounds full ROM ambulating in the unit withdrawal symptoms increase Po fluids continue detox continue to monitor
[2018-05-17] MEDS ORDERED: VITAMINS A AND D TOPICAL OINTMENT 60 GM TUBE TP SCH (22:00)
[2018-05-17] MEDS: THIAMINE HCL 100 MG TABLET (FP) PO SCH (22:16)
[2018-05-18] MEDS ORDERED: METHADONE HCL 5 MG TABLET (FOR DETOX USE ONLY) PO SCH (06:00)
[2018-05-18 06:15] VITALS: BP 130/70; PULSE 88; TEMP 97.3
--- NOTE | 2018-05-18 12:53 | DS ---
[facility] Detox Discharge Summary Admission Date: 05/13/18 Discharge Date: 05/18/18 - History Present History: Alcohol Dependence, Opioid Dependence Pertinent Past History: Withdrawal symptoms Laboratory Tests 05/13/18 05/14/18 05/14/18 22:49 07:00 07:00 WBC 7.2 RBC 4.17 Hgb 11.6 L Hct 35.4 MCV 84.9 MCH 27.7 MCHC 32.6 RDW 15.4 Plt Count 287 MPV 7.3 L Sodium 143 Potassium 3.9 Chloride 107 Carbon Dioxide 27 Anion Gap 8 BUN 11 Creatinine 0.9 Creat Clearance w eGFR > 60 Random Glucose 93 Calcium 8.3 L Total Bilirubin 0.3 AST 21 ALT 24 Alkaline Phosphatase 46 Total Protein 5.9 L Albumin 2.8 L Urine Color Ltyellow Urine Appearance Clear Urine pH 5.0 Ur Specific [place] 1.012 Urine Protein Negative Urine Glucose (UA) Negative Urine Ketones Negative Urine Blood Negative Urine Nitrite Negative Urine Bilirubin Negative Urine Urobilinogen Negative Ur Leukocyte Esterase Negative RPR Titer 05/14/18 07:00 WBC RBC Hgb Hct MCV MCH MCHC RDW Plt Count MPV Sodium Potassium Chloride Carbon Dioxide Anion Gap BUN Creatinine Creat Clearance w eGFR Random Glucose Calcium Total Bilirubin AST ALT Alkaline Phosphatase Total Protein Albumin Urine Color Urine Appearance Urine pH Ur Specific [place] Urine Protein Urine Glucose (UA) Urine Ketones Urine Blood Urine Nitrite Urine Bilirubin Urine Urobilinogen Ur Leukocyte Esterase RPR Titer Nonreactive Labs reviewed - Physical Exam Results Vital Signs: Vital Signs Temperature 97.3 F L 05/18/18 06:14 Pulse Rate 88 05/18/18 06:14 Respiratory Rate 20 05/18/18 06:14 Blood Pressure 130/70 05/18/18 06:14 O2 Sat by Pulse Oximetry (%) - Treatment Hospital Course: Detox Protocol Followed, Detoxed Safely, Responded well, Discharged Condition Good - Medication Discharge Medications: Ambulatory Orders NK [No Known Home Medication] 03/19/18 - Diagnosis (1) Depression Status: Chronic (2) Alcohol dependence with uncomplicated withdrawal Status: Acute (3) History of positive PPD Status: Chronic (4) Nicotine dependence Status: Chronic Qualifiers: Nicotine product type: cigarettes Substance use status: in withdrawal Qualified Code(s): F17.213 - Nicotine dependence, cigarettes, with withdrawal (5) Opioid dependence with withdrawal Status: Acute - AMA Did Patient Leave Against Medical Advice: No (F/U with your PCP within 1-2 weeks )
== END 2018-05-18 09:06 | disposition home or self-care (01) | DRG 897 ==
LOC: YASAS 18:10 → Y3N 20:35
PROC: HZ2ZZZZ Detoxification Services for Substance Abuse Treatment (ICD-10-PCS; principal; 2018-05-13)
DX: F11.23 Opioid dependence with withdrawal (principal); F10.230 Alcohol dependence with withdrawal, uncomplicated; F17.213 Nicotine dependence, cigarettes, with withdrawal; F32.9 Major depressive disorder, single episode, unspecified; R76.11 Nonspecific reaction to tuberculin skin test without active tuberculosis; Z85.46 Personal history of malignant neoplasm of prostate; Z90.79 Acquired absence of other genital organ(s); Z59.0 Homelessness
CPT/HCPCS: 36415; 80053; 81003; 85027; 86593

== ENCOUNTER 2018-10-10 11:03 | Inpatient (IN) | payer OTHER ==
[2018-10-10 13:38] VITALS: BMI 28.2
--- NOTE | 2018-10-10 15:22 | HP ---
COWS - Scale Resting Pulse: 1= [place] 81-100 Sweatin=Flushed/Facial Moisture Restless Observation: 1= Difficult to Sit Still Pupil Size: 0= Normal to Room Light Bone or Joint Aches: 2= Severe Diffuse Aches Runny Nose/ Eye Tearin= Runny Nose/Eyes GI Upset > 30mins: 2= Nausea/Diarrhea Tremor Observation: 2= Slight Tremor Visible Yawning Observation: 2= >3x During Session Anxiety or Irritability: 2=Irritable/Anxious Goose Flesh Skin: 0=Smooth Skin COWS Score: 16 CIWA Score - Admission Criteria [facility] Guidelines: Admission for Medically Managed Detox: Requires at least one of the followin. CIWA greater than 12 2. Seizures within the past 24 hours 3. Delirium tremens within the past 24 hours 4. Hallucinations within the past 24 hours 5. Acute intervention needed for co occurring medical disorder 6. Acute intervention needed for co occurring psychiatric disorder 7. Severe withdrawal that cannot be handled at a lower level of care (continued vomiting, continued diarrhea, abnormal vital signs) requiring intravenous medication and/or fluids 8. Admission ROS S - HPI Chief Complaint: I need to be here and stop using. Allergies/Adverse Reactions: Allergies Allergy/AdvReac Type Severity Reaction Status Date / Time pork derived (porcine) Allergy Verified 05/13/18 20:33 History of Present Illness: pt is a 53yrold male with a history of heroin dependence seeking detox for treatment. pt states he was sober for 5yrs and relapsed and continue to go to detox and has relapsed. Pt is seeking to get help again. Exam Limitations: No Limitations - Ebola screening Have you traveled outside of the country in the last 21 days: No Have you had contact with anyone from an Ebola affected area: No Have you been sick,other than usual withdrawal symptoms: No Do you have a fever: No - Review of Systems Constitutional: Chills, Loss of Appetite, Night Sweats, Changes in sleep EENT: reports: Tearing, Nose Congestion Respiratory: reports: No Symptoms reported Cardiac: reports: Lightheadedness GI: reports: Constipated, Poor Appetite, Poor Fluid Intake : reports: No Symptoms Reported Musculoskeletal: reports: Back Pain, Joint Pain, Muscle Pain Integumentary: reports: Flushing, Lesions (on face pt picks his face.), Sweating Neuro: reports: Tingling, Tremors Endocrine: reports: Excessive Sweating, Flushing, Intolerance to Cold, Intolerance to Heat Hematology: reports: No Symptoms Reported Psychiatric: reports: Judgement Intact, Mood/Affect Appropiate, Orientated x3, Agitated, Anxious Other Systems: Reviewed and Negative Patient History - Patient Medical History Hx Anemia: No Hx Asthma: No Hx Chronic Obstructive Pulmonary Disease (COPD): No Hx Cancer: No Hx Cardiac Disorders: No Hx Congestive Heart Failure: No Hx Hypertension: No Hx Hypercholesterolemia: No Hx Pacemaker: No HX Cerebrovascular Accident: No Hx Seizures: No Hx Dementia: No Hx Diabetes: No Hx Gastrointestinal Disorders: No Hx Liver Disease: No Hx Genitourinary Disorders: No Hx Sexually Transmitted Disorders: No Hx Renal Disease (ESRD): No Hx Thyroid Disease: No Hx Human Immunodeficiency Virus (HIV): No (pt denies ) Hx Hepatitis C: No (pt denies) Hx Depression: No Hx Suicide Attempt: No (pt denies) Hx Bipolar Disorder: No Hx Schizophrenia: No - Patient Surgical History Past Surgical History: Yes Hx Neurologic Surgery: No Hx Cataract Extraction: No Hx Cardiac Surgery: No Hx Lung Surgery: No Hx Breast Surgery: No Hx Breast Biopsy: No Hx Abdominal Surgery: No Hx Appendectomy: No Hx Cholecystectomy: No Hx Genitourinary Surgery: No Hx Section: No Hx Orthopedic Surgery: No Other Surgical History: REMOVAL OF PROSTATE CA Anesthesia Reaction: Yes - PPD History Previous Implant?: Yes Documented Results: Positive w/proof PPD to be Administered?: No - Reproductive History Patient is a Female of Child Bearing Age (11 -55 yrs old): No - Smoking Cessation Smoking history: Current every day smoker Have you smoked in the past 12 months: Yes Aproximately how many cigarettes per day: 10 Cigars Per Day: 0 Hx Chewing Tobacco Use: No Initiated information on smoking cessation: Yes 'Breaking Loose' booklet given: 10/10/18 - Substance & Tx. History Hx Alcohol Use: No Hx Substance Use: Yes Substance Use Type: Heroin Hx Substance Use Treatment: Yes (last detox 2017) - Substances Abused Heroin Route: Inhalation Frequency: Daily Amount used: 1 bundle Age of first use: 22 Date of Last Use: 10/10/18 Family Disease History - Family Disease History Family History: Denies Admission Physical Exam [facility] - Vital Signs Vital Signs: Vital Signs - 24 hr 10/10/18 13:36 Temperature 97.6 F Pulse Rate 97 H Respiratory 18 Rate Blood Pressure 140/77 - Physical General Appearance: Yes: Appropriately Dressed, Moderate Distress, Tremorous, Irritable, Sweating, Anxious HEENTM: Yes: Hearing grossly Normal, Normal Voice, Hearing Decreased Respiratory: Yes: Lungs Clear, Normal Breath Sounds, No Respiratory Distress Neck: Yes: No masses,lesions,Nodules Breast: Yes: Within Normal Limits Cardiology: Yes: Regular Rhythm, Regular Rate, S1, S2 Abdominal: Yes: Normal Bowel Sounds, Non Tender, Soft Genitourinary: Yes: Within Normal Limits Back: Yes: Normal Inspection Musculoskeletal: Yes: Within Normal Limits Extremities: Yes: Normal Capillary Refill, Normal Inspection, Non-Tender, Tremors Neurological: Yes: Fully Oriented, Alert, Normal Response Integumentary: Yes: Normal Color, Diaphoresis, Other Lymphatic: Yes: Within Normal Limits - Diagnostic (1) Alcohol dependence with uncomplicated withdrawal Current Visit: Yes Status: Chronic (2) Cannabis abuse, uncomplicated Current Visit: Yes Status: Chronic (3) Cocaine abuse, uncomplicated Current Visit: Yes Status: Chronic (4) Dry mucous membranes Current Visit: No Status: Acute (5) History of prostate cancer Current Visit: No Status: Chronic (6) Opioid dependence with withdrawal Current Visit: Yes Status: Chronic (7) Substance induced mood disorder Current Visit: No Status: Acute (8) Depression Current Visit: No Status: Chronic (9) History of positive PPD Current Visit: No Status: Chronic Comment: HISTORY OF +PPD. PROVIDED A REPORT FROM 11/29/17 CXR. RESULTS: NO ACTIVE PULMONARY PROCESS. (10) Nicotine dependence Current Visit: Yes Status: Chronic Qualifiers: Nicotine product type: cigarettes Substance use status: uncomplicated Qualified Code(s): F17.210 - Nicotine dependence, cigarettes, uncomplicated Cleared for Admission S - Detox or Rehab [facility] Level of Care: Medically Managed Detox Regimen/Protocol: Methadone S Breath Alcohol Content Breath Alcohol Content: 0 Urine Drug Screen - Results Drug Screen Negative: No Urine Drug Screen Results: OPI-Opiates, MTD-Methadone, FEN-Fentanyl Inpatient Rehab Admission - Rehab Decision to Admit Inpatient rehab admission?: No
[2018-10-10] MEDS ORDERED: MENTHOL/PHENOL 1 EACH UD MM PRN (15:53)
[2018-10-10] MEDS ORDERED: traZODone HCL 50 MG TABLET (FP) PO PRN (15:53)
[2018-10-10] MEDS ORDERED: MAGNESIUM HYDROX 2400MG/30ML ORAL SUSPENSION 30 ML CUP PO PRN (15:53)
[2018-10-10] MEDS ORDERED: MELATONIN 5 MG TABLETS PO PRN (15:53)
[2018-10-10] MEDS ORDERED: cloNIDine HCL 0.1 MG TABLET PO PRN (15:53)
[2018-10-10] MEDS ORDERED: ACETAMINOPHEN 325 MG TABLET (FP) PO PRN ×2 (15:53)
[2018-10-10] MEDS ORDERED: BISMUTH SUBSALICYLATE 524 MG/30 ML UD PO PRN (15:53)
[2018-10-10] MEDS ORDERED: NICOTINE POLACRILEX 4 MG GUM BUC PRN (15:53)
[2018-10-10] MEDS ORDERED: clonazePAM 0.5 MG TABLET PO PRN (15:53)
[2018-10-10] MEDS ORDERED: MAG HYDROX/AL HYDROX/SIMETH 30 ML UNIT-DOSE CUP PO PRN (15:53)
[2018-10-10] MEDS ORDERED: MAGNESIUM CITRATE 300 ML BOTTLE PO PRN (15:53)
[2018-10-10] MEDS ORDERED: hydrOXYzine PAMOATE 25 MG CAPSULE (FP) PO PRN (15:53)
[2018-10-10] MEDS ORDERED: METHOCARBAMOL 500 MG TABLET PO PRN (15:53)
[2018-10-10] MEDS ORDERED: IBUPROFEN 400 MG TABLET (FP) PO PRN (15:53)
[2018-10-10] MEDS ORDERED: ONDANSETRON *ODT* 4 MG TABLET SL PRN (15:53)
[2018-10-10] MEDS ORDERED: P-EPHED 60MG/TRIPROLIDI 2.5MG TABLET PO PRN (15:53)
[2018-10-10] MEDS ORDERED: METHADONE HCL 10 MG TABLET (FOR DETOX USE ONLY) PO ONE ×2 (17:45→23:00)
[2018-10-10] MEDS ORDERED: COLLOIDAL OATMEAL 1 BAR EACH TP PRN (19:25)
[2018-10-10] MEDS: BACITRACIN 0.9 GM PACKET TP SCH (23:01)
[2018-10-10] MEDS: THIAMINE HCL 100 MG TABLET (FP) PO SCH (23:01)
[2018-10-11] MEDS ORDERED: METHADONE HCL 10 MG TABLET (FOR DETOX USE ONLY) PO ONE (10:00)
[2018-10-11 10:51] LABS: HEMATOCRIT 36.9 % (35.4-49); HEMOGLOBIN 12.1 GM/dL (11.7-16.9); MCH 27.4 pg (25.7-33.7); MCHC 32.9 g/dl (32.0-35.9); MEAN CELL VOLUME 83.3 fl (80-96); MEAN PLT VOLUME 7.1 fl (7.5-11.1); PLATELET COUNT 347 K/MM3 (134-434); RBC 4.43 M/mm3 (4.00-5.60); RDW 15.2 % (11.9-15.9); WHITE BLOOD COUNT 6.5 K/mm3 (4.0-10.0)
[2018-10-11 10:57] LABS: ALK PHOS 55 U/L (45-117); ANION GAP 5 MMOL/L (8-16); BILIRUBIN,TOTAL 0.5 mg/dL (0.2-1); BLOOD UREA NITROGEN 11 mg/dL (7-18); CALCIUM 8.3 mg/dL (8.5-10.1); CHLORIDE 106 mmol/L (98-107); CO2 29 mmol/L (21-32); GLUCOSE,RANDOM 79 mg/dL (74-106); POTASSIUM 4.5 mmol/L (3.5-5.1); SGOT/AST 18 U/L (15-37); SGPT/ALT 23 U/L (13-61); SODIUM 139 mmol/L (136-145); TOT PROT 6.5 g/dl (6.4-8.2)
[2018-10-11] MEDS: PRENATAL VITAMINS W/ FOLIC ACID TABLET (FP) PO SCH (11:04)
[2018-10-11] MEDS: NICOTINE 21 MG/24 HOURS TOPICAL PATCH TD SCH (11:04)
[2018-10-11] MEDS: BACITRACIN 0.9 GM PACKET TP SCH ×2 (11:04→23:39)
--- NOTE | 2018-10-11 15:43 | CONSULT ---
[facility] Psychiatric Consult - Data Date of interview: 10/11/18 Admission source: [facility] Identifying data: Second admission to [facility] for this 53 y/o AA male self- referred for detoxification (heroin). Examined at [address] [place] [address]. Patient is , a father of one, homeless, unemployed and currently supported on Public Assistance. Substance Abuse History: Confirmed by the patient in this interview. Details in current [facility] report as follows : Smoking history: Current every day smoker. Have you smoked in the past 12 months: Yes. Aproximately how many cigarettes per day: 10. Cigars Per Day: 0. Hx Chewing Tobacco Use: No. Initiated information on smoking cessation: Yes. 'Breaking Loose' booklet given: . - Substance & Tx. History. Hx Alcohol Use: No. Hx Substance Use: Yes. Substance Use Type: Heroin. Hx Substance Use Treatment: Yes (last detox 2017). - Substances Abused. Heroin. Route: Inhalation. Frequency: Daily. Amount used: 1 bundle. Age of first use: 22. Date of Last Use: 10/10/18 Medical History: Reamrkable for removal of prostate (cancer) in 2016. Psychiatric History: Patient denies. Physical/Sexual Abuse/Trauma History: Patient denies. Additional Comment: Urine Drug Screen Results: OPI-Opiates, MTD-Methadone, FEN- Fentanyl. Noted. Mental Status Exam - Mental Status Exam Alert and Oriented to: Time, Place, Person Cognitive Function: Good Patient Appearance: Well Groomed (muscular built) Mood: Hopeful, Euthymic Affect: Appropriate, Normal Range Patient Behavior: Fatigued, Appropriate, Cooperative Speech Pattern: Clear Voice Loudness: Normal Thought Process: Intact, Goal Oriented Thought Disorder: Not Present Hallucinations: Denies Suicidal Ideation: Denies Homicidal Ideation: Denies Insight/Judgement: Fair Sleep: Well Appetite: Good Muscle strength/Tone: Normal Gait/Station: Normal Psychiatric Findings - Problem List ([place] 1, 2,3) (1) Opioid dependence with withdrawal Current Visit: Yes Status: Chronic (2) Nicotine dependence Current Visit: Yes Status: Chronic Qualifiers: Nicotine product type: cigarettes Substance use status: uncomplicated Qualified Code(s): F17.210 - Nicotine dependence, cigarettes, uncomplicated - Initial Treatment Plan Initial Treatment Plan: Psychoeducation. Detoxification. Sleep hygiene. NA meetings. Strategies for relapse prevention (MAT initiatives) : discussed with patient. Motivational sessions aiming at positive lifestyle changes. Observation.
--- NOTE | 2018-10-11 16:12 | PN ---
[facility] COWS - Scale Resting Pulse: 2= [place] 101-120 Sweatin=Flushed/Facial Moisture Restless Observation: 0= Sits Still Pupil Size: 0= Normal to Room Light Bone or Joint Aches: 1= Mild Discomfort Runny Nose/ Eye Tearin= Nasal Congestion GI Upset > 30mins: 0= None Tremor Observation of Outstretched Hands: 1= Tremor [place], Not Seen Yawning Observation: 1= 1-2x During Session Anxiety or Irritability: 0= None Goose Flesh Skin: 0=Smooth Skin COWS Score: 8 [facility] Progress Note (SOAP) Subjective: sweating Objective: 10/11/18 16:12 A & Ox 3 in bed, not in acute distress Vital Signs Temperature 97 F L 10/11/18 14:07 Pulse Rate 82 10/11/18 14:07 Respiratory Rate 18 10/11/18 14:07 Blood Pressure 146/78 10/11/18 14:07 O2 Sat by Pulse Oximetry (%) Laboratory Last Values WBC 6.5 K/mm3 (4.0-10.0) 10/11/18 07:45 RBC 4.43 M/mm3 (4.00-5.60) 10/11/18 07:45 Hgb 12.1 GM/dL (11.7-16.9) 10/11/18 07:45 Hct 36.9 % (35.4-49) 10/11/18 07:45 MCV 83.3 fl (80-96) 10/11/18 07:45 MCH 27.4 pg (25.7-33.7) 10/11/18 07:45 MCHC 32.9 g/dl (32.0-35.9) 10/11/18 07:45 RDW 15.2 % (11.9-15.9) 10/11/18 07:45 Plt Count 347 K/MM3 (134-434) D 10/11/18 07:45 MPV 7.1 fl (7.5-11.1) L 10/11/18 07:45 Sodium 139 mmol/L (136-145) 10/11/18 07:45 Potassium 4.5 mmol/L (3.5-5.1) 10/11/18 07:45 Chloride 106 mmol/L (98-107) 10/11/18 07:45 Carbon Dioxide 29 mmol/L (21-32) 10/11/18 07:45 Anion Gap 5 MMOL/L (8-16) L 10/11/18 07:45 BUN 11 mg/dL (7-18) 10/11/18 07:45 Creatinine 1.0 mg/dL (0.55-1.3) 10/11/18 07:45 Creat Clearance w eGFR 77.58 (>60) 10/11/18 07:45 Random Glucose 79 mg/dL (74-106) 10/11/18 07:45 Calcium 8.3 mg/dL (8.5-10.1) L 10/11/18 07:45 Total Bilirubin 0.5 mg/dL (0.2-1) 10/11/18 07:45 AST 18 U/L (15-37) 10/11/18 07:45 ALT 23 U/L (13-61) 10/11/18 07:45 Alkaline Phosphatase 55 U/L (45-117) 10/11/18 07:45 Total Protein 6.5 g/dl (6.4-8.2) 10/11/18 07:45 Albumin 3.0 g/dl (3.4-5.0) L 10/11/18 07:45 RPR Titer Nonreactive (NONREACTIVE) 10/11/18 07:45 low Ca+ Assessment: 10/11/18 16:12 withdrawal sx Hypocalcemia Plan: Continue detox Calcium supplement
[2018-10-11] MEDS: CALCIUM 250MG/VIT-D 125 UNITS 1 COMBO TABLET PO SCH (16:46)
[2018-10-11] MEDS: THIAMINE HCL 100 MG TABLET (FP) PO SCH (23:38)
[2018-10-12] MEDS ORDERED: METHADONE HCL 10 MG TABLET (FOR DETOX USE ONLY) PO ONE (10:00)
[2018-10-12] MEDS: CALCIUM 250MG/VIT-D 125 UNITS 1 COMBO TABLET PO SCH (11:02)
[2018-10-12] MEDS: BACITRACIN 0.9 GM PACKET TP SCH ×2 (11:02→22:27)
[2018-10-12] MEDS: PRENATAL VITAMINS W/ FOLIC ACID TABLET (FP) PO SCH (11:02)
[2018-10-12] MEDS: NICOTINE 21 MG/24 HOURS TOPICAL PATCH TD SCH (11:03)
--- NOTE | 2018-10-12 15:43 | PN ---
BHS COWS - Scale Resting Pulse: 1= [place] 81-100 Sweatin= Chills/Flushing Restless Observation: 0= Sits Still Pupil Size: 0= Normal to Room Light Bone or Joint Aches: 1= Mild Discomfort Runny Nose/ Eye Tearin= Nasal Congestion GI Upset > 30mins: 0= None Tremor Observation of Outstretched Hands: 0= None Yawning Observation: 0= None Anxiety or Irritability: 0= None Goose Flesh Skin: 0=Smooth Skin COWS Score: 4 BHS Progress Note (SOAP) Subjective: seeling better less body ache Objective: 10/12/18 15:43 Vital Signs Temperature 98.6 F 10/12/18 13:14 Pulse Rate 91 H 10/12/18 13:14 Respiratory Rate 20 10/12/18 13:14 Blood Pressure 141/76 10/12/18 13:14 O2 Sat by Pulse Oximetry (%) Laboratory Last Values WBC 6.5 K/mm3 (4.0-10.0) 10/11/18 07:45 RBC 4.43 M/mm3 (4.00-5.60) 10/11/18 07:45 Hgb 12.1 GM/dL (11.7-16.9) 10/11/18 07:45 Hct 36.9 % (35.4-49) 10/11/18 07:45 MCV 83.3 fl (80-96) 10/11/18 07:45 MCH 27.4 pg (25.7-33.7) 10/11/18 07:45 MCHC 32.9 g/dl (32.0-35.9) 10/11/18 07:45 RDW 15.2 % (11.9-15.9) 10/11/18 07:45 Plt Count 347 K/MM3 (134-434) D 10/11/18 07:45 MPV 7.1 fl (7.5-11.1) L 10/11/18 07:45 Sodium 139 mmol/L (136-145) 10/11/18 07:45 Potassium 4.5 mmol/L (3.5-5.1) 10/11/18 07:45 Chloride 106 mmol/L (98-107) 10/11/18 07:45 Carbon Dioxide 29 mmol/L (21-32) 10/11/18 07:45 Anion Gap 5 MMOL/L (8-16) L 10/11/18 07:45 BUN 11 mg/dL (7-18) 10/11/18 07:45 Creatinine 1.0 mg/dL (0.55-1.3) 10/11/18 07:45 Creat Clearance w eGFR 77.58 (>60) 10/11/18 07:45 Random Glucose 79 mg/dL (74-106) 10/11/18 07:45 Calcium 8.3 mg/dL (8.5-10.1) L 10/11/18 07:45 Total Bilirubin 0.5 mg/dL (0.2-1) 10/11/18 07:45 AST 18 U/L (15-37) 10/11/18 07:45 ALT 23 U/L (13-61) 10/11/18 07:45 Alkaline Phosphatase 55 U/L (45-117) 10/11/18 07:45 Total Protein 6.5 g/dl (6.4-8.2) 10/11/18 07:45 Albumin 3.0 g/dl (3.4-5.0) L 10/11/18 07:45 RPR Titer Nonreactive (NONREACTIVE) 10/11/18 07:45 lab noted Assessment: 10/12/18 15:43 withdrawal sx Plan: continue detox
[2018-10-12] MEDS: THIAMINE HCL 100 MG TABLET (FP) PO SCH (22:27)
[2018-10-13] MEDS ORDERED: METHADONE HCL 10 MG TABLET (FOR DETOX USE ONLY) PO ONE (10:00)
[2018-10-13] MEDS: BACITRACIN 0.9 GM PACKET TP SCH (10:27)
[2018-10-13] MEDS: PRENATAL VITAMINS W/ FOLIC ACID TABLET (FP) PO SCH (10:27)
[2018-10-13] MEDS: NICOTINE 21 MG/24 HOURS TOPICAL PATCH TD SCH (10:27)
[2018-10-13] MEDS: CALCIUM 250MG/VIT-D 125 UNITS 1 COMBO TABLET PO SCH (10:28)
[2018-10-13 13:05] VITALS: BP 144/83; PULSE 91; TEMP 97.9
--- NOTE | 2018-10-13 18:13 | PN ---
[facility] Progress Note (SOAP) Subjective: Patient denies current Withdrawal / Detox symptoms and reports that he feels well overall. Objective: PATIENT A & O X 3, OBSERVED AMBULATING ON UNIT. IN NO ACUTE DISTRESS. 10/13/18 18:12 Vital Signs Temperature 97.9 F 10/13/18 13:04 Pulse Rate 91 H 10/13/18 13:04 Respiratory Rate 18 10/13/18 13:04 Blood Pressure 144/83 10/13/18 13:04 O2 Sat by Pulse Oximetry (%) Laboratory Tests 10/11/18 10/11/18 10/11/18 07:45 07:45 07:45 WBC 6.5 RBC 4.43 Hgb 12.1 Hct 36.9 MCV 83.3 MCH 27.4 MCHC 32.9 RDW 15.2 Plt Count 347 D MPV 7.1 L Sodium 139 Potassium 4.5 Chloride 106 Carbon Dioxide 29 Anion Gap 5 L BUN 11 Creatinine 1.0 Creat Clearance w eGFR 77.58 Random Glucose 79 Calcium 8.3 L Total Bilirubin 0.5 AST 18 ALT 23 Alkaline Phosphatase 55 Total Protein 6.5 Albumin 3.0 L RPR Titer Nonreactive LABS NOTED. Assessment: 10/13/18 18:12 WITHDRAWAL SYMPTOMS. Plan: CONTINUE DETOX.
--- NOTE | 2018-10-13 18:15 | PN ---
[facility] Progress Note Note: SINCE PATIENT DENIES CURRENT WITHDRAWAL / DETOX SYMPTOMS AND REPORTS THAT HE FEELS WELL OVERALL, AT PATIENT'S REQUEST, HE WAS GRANTED AN EARLY DISCHARGE FROM DETOX UNIT TODAY SO THAT HE MAY PROCEED ON TO AFTERCARE PLAN. Stef LAINEZ NP
--- NOTE | 2018-10-13 18:21 | DS ---
[facility] Detox Discharge Summary Admission Date: 10/10/18 Discharge Date: 10/13/18 - History Present History: Alcohol Dependence, Cannabis Dependence, Cocaine Dependence, Opioid Dependence Additional Comments: PATIENT DENIES CURRENT WITHDRAWAL / DETOX SYMPTOMS AND REPORTS THAT HE FEELS WELL OVERALL AT TIME OF DISCHARGE FROM DETOX UNIT. PATIENT CONSIDERING APPLYING TO [facility] OR [facility] IN THE NEAR FUTURE. PATIENT ALSO ADVISED TO CONSIDER LOCAL 12-STEP / NA / AA OUTPATIENT SUPPORT GROUP PROGRAMS FOR AFTERCARE. PATIENT VERBALIZED UNDERSTANDING OF RECOMMENDATION. PATIENT WAS DISCHARGED FROM DETOX UNIT IN STABLE MEDICAL CONDITION. Pertinent Past History: History of Prostate Cancer, Dry Mucous Membranes, Depression, History of Positive PPD, Nicotine Dependence, History of Positive PPD. - Physical Exam Results Vital Signs: Vital Signs Temperature 97.9 F 10/13/18 13:04 Pulse Rate 91 H 10/13/18 13:04 Respiratory Rate 18 10/13/18 13:04 Blood Pressure 144/83 10/13/18 13:04 O2 Sat by Pulse Oximetry (%) Pertinent Admission Physical Exam Findings: WITHDRAWAL SYMPTOMS. Laboratory Tests 10/11/18 10/11/18 10/11/18 07:45 07:45 07:45 WBC 6.5 RBC 4.43 Hgb 12.1 Hct 36.9 MCV 83.3 MCH 27.4 MCHC 32.9 RDW 15.2 Plt Count 347 D MPV 7.1 L Sodium 139 Potassium 4.5 Chloride 106 Carbon Dioxide 29 Anion Gap 5 L BUN 11 Creatinine 1.0 Creat Clearance w eGFR 77.58 Random Glucose 79 Calcium 8.3 L Total Bilirubin 0.5 AST 18 ALT 23 Alkaline Phosphatase 55 Total Protein 6.5 Albumin 3.0 L RPR Titer Nonreactive LABS NOTED. - Treatment Hospital Course: Detox Protocol Followed, Detoxed Safely, Responded well, Discharged Condition Good Patient has Accepted a Rehab Referral to: PT. WILL CONSIDER [facility] OR [facility] FOR NEAR FUTURE. - Medication Discharge Medications: Ambulatory Orders NK [No Known Home Medication] 03/19/18 - Diagnosis (1) Dry mucous membranes Status: Acute (2) Substance induced mood disorder Status: Acute (3) Alcohol dependence with uncomplicated withdrawal Status: Acute (4) Cannabis abuse, uncomplicated Status: Chronic (5) Cocaine abuse, uncomplicated Status: Chronic (6) Depression Status: Chronic Qualifiers: Depression Type: unspecified Qualified Code(s): F32.9 - Major depressive disorder, single episode, unspecified (7) History of positive PPD Status: Chronic (8) History of prostate cancer Status: Chronic (9) Nicotine dependence Status: Chronic Qualifiers: Nicotine product type: cigarettes Substance use status: uncomplicated Qualified Code(s): F17.210 - Nicotine dependence, cigarettes, uncomplicated (10) Opioid dependence with withdrawal Status: Acute - AMA Did Patient Leave Against Medical Advice: No
[2018-10-14] MEDS ORDERED: METHADONE HCL 5 MG TABLET (FOR DETOX USE ONLY) PO ONE (06:00)
== END 2018-10-13 15:10 | disposition home or self-care (01) | DRG 773 ==
LOC: YASAS 11:03 → Y3N 17:12
PROVIDERS: ADMIT Surgery; ATTEND Surgery
PROC: HZ2ZZZZ Detoxification Services for Substance Abuse Treatment (ICD-10-PCS; principal; 2018-10-10)
DX: F11.23 Opioid dependence with withdrawal (principal); F10.230 Alcohol dependence with withdrawal, uncomplicated; F14.10 Cocaine abuse, uncomplicated; F12.10 Cannabis abuse, uncomplicated; F17.210 Nicotine dependence, cigarettes, uncomplicated; F32.9 Major depressive disorder, single episode, unspecified; F19.24 Other psychoactive substance dependence with psychoactive substance-induced mood disorder; R76.11 Nonspecific reaction to tuberculin skin test without active tuberculosis; R68.2 Dry mouth, unspecified; E83.51 Hypocalcemia; Z90.79 Acquired absence of other genital organ(s); Z85.46 Personal history of malignant neoplasm of prostate
CPT/HCPCS: 36415; 80053; 85027; 86593

== ENCOUNTER 2019-05-18 08:47 | Inpatient (IN) | payer OTHER ==
[2019-05-18 09:33] VITALS: BMI 27.8
--- NOTE | 2019-05-18 10:00 | HP ---
COWS - Scale Resting Pulse: 1= [place] 81-100 Sweatin= Chills/Flushing Restless Observation: 1= Difficult to Sit Still Pupil Size: 1= Pupils >than Normal Bone or Joint Aches: 1= Mild Discomfort Runny Nose/ Eye Tearin= Runny Nose/Eyes GI Upset > 30mins: 1= Stomach Cramp Tremor Observation: 2= Slight Tremor Visible Yawning Observation: 2= >3x During Session Anxiety or Irritability: 1=Feels Anxious/Irritable Goose Flesh Skin: 3=Piloerection COWS Score: 16 CIWA Score Nausea/Vomitin-Mild Nausea/No Vomiting Muscle Tremors: 3 Anxiety: 3 Agitation: 2 Paroxysmal Sweats: 1-Minimal Palms Moist Orientation: 1-Uncertain about Date Tacttile Disturbances: 1-Very Mild Itch/Numbness Auditory Disturbances: 0-None Visual Disturbances: 0-None Headache: 0-None Present CIWA-Ar Total Score: 12 - Admission Criteria OASAS Guidelines: Admission for Medically Managed Detox: Requires at least one of the followin. CIWA greater than 12 2. Seizures within the past 24 hours 3. Delirium tremens within the past 24 hours 4. Hallucinations within the past 24 hours 5. Acute intervention needed for co occurring medical disorder 6. Acute intervention needed for co occurring psychiatric disorder 7. Severe withdrawal that cannot be handled at a lower level of care (continued vomiting, continued diarrhea, abnormal vital signs) requiring intravenous medication and/or fluids 8. Admitting History and Physical - Admission Chief Complaint: " I want to detox off of heroin and alcohol." History of Present Illness: 54 year old black male with opioid dependence with withdrawals and alcohol dependence with mild withdrawals. He is using 1 bundle of heroin daily, last used yesterday. He denies prior overdoses. He is drinking 2 40 oz of beers daily, last used yesterday. He denies blackouts or withdrawal seizures. One month ago he did fall but does not remember why but thinks it might have been an overdose of heroin. He denies other substances of abuse. He smokes ciggarettes 1 ppd for many years, since age of [age] years old. PMH: None, History of prostate cancer 2016, +PPD with negative CXR. Psurg: Cancer of prostate with TURP 2016 but never followed up proposed chemotherapy. Patient is homeless and in [facility] system. No housing given yet. Patient denies any legal issues pending. Psych: None History Source: Patient Limitations to Obtaining History: No Limitations - Past Medical History Dermatology: Yes: Other (dry skin) - Past Surgical History Past Surgical History: Yes: None - Advance Directives Advance Directives: No: Living Will, Health Care Proxy, DNR - Smoking History Smoking history: Current every day smoker Have you smoked in the past 12 months: Yes Aproximately how many cigarettes per day: 10 - Alcohol/Substance Use Hx Alcohol Use: No History of Substance Use: reports: Heroin - Social History Usual Living Arrangement: Yes: Alone Do you think of yourself as: Straight/Heterosexual ADL: Independent Occupation: special education bus driver History of Recent Travel: No [facility] Chief Complaint: " I want to detox off of heroin and alcohol." Allergies/Adverse Reactions: Allergies Allergy/AdvReac Type Severity Reaction Status Date / Time pork derived (porcine) Allergy Verified 05/18/19 09:27 History of Present Illness: 54 year old black male with opioid dependence with withdrawals and alcohol dependence with mild withdrawals. He is using 1 bundle of heroin daily, last used yesterday. He denies prior overdoses. He is drinking 2 40 oz of beers daily, last used yesterday. He denies blackouts or withdrawal seizures. One month ago he did fall but does not remember why but thinks it might have been an overdose of heroin. He denies other substances of abuse. He smokes ciggarettes 1 ppd for many years, since age of [age] years old. PMH: None, History of prostate cancer 2016, +PPD with negative CXR. Psurg: Cancer of prostate with TURP 2016 but never followed up proposed chemotherapy. Patient is homeless and in [facility] system. No housing given yet. Patient denies any legal issues pending. Psych: None Exam Limitations: No Limitations - Ebola screening Have you traveled outside of the country in the last 21 days: No Have you had contact with anyone from an Ebola affected area: No Have you been sick,other than usual withdrawal symptoms: No Do you have a fever: No - Review of Systems Constitutional: Loss of Appetite, Unintentional Wgt. Loss EENT: reports: No Symptoms Reported Respiratory: reports: No Symptoms reported Cardiac: reports: No Symptoms Reported GI: reports: No Symptoms Reported : reports: No Symptoms Reported Musculoskeletal: reports: No Symptoms Reported Integumentary: reports: No Symptoms Reported Neuro: reports: No Symptoms reported Endocrine: reports: No Symptoms Reported Hematology: reports: No Symptoms Reported Psychiatric: reports: No Sypmtoms Reported Other Systems: Reviewed and Negative Patient History - Patient Medical History Hx Anemia: No Hx Asthma: No Hx Chronic Obstructive Pulmonary Disease (COPD): No Hx Cancer: No Hx Cardiac Disorders: No Hx Congestive Heart Failure: No Hx Hypertension: No Hx Hypercholesterolemia: No Hx Pacemaker: No HX Cerebrovascular Accident: No Hx Seizures: No Hx Dementia: No Hx Diabetes: No Hx Gastrointestinal Disorders: No Hx Liver Disease: No Hx Genitourinary Disorders: No Hx Sexually Transmitted Disorders: No Hx Renal Disease (ESRD): No Hx Thyroid Disease: No Hx Human Immunodeficiency Virus (HIV): No (pt denies ) Hx Hepatitis C: No (pt denies) Hx Depression: No Hx Suicide Attempt: No Hx Bipolar Disorder: No Hx Schizophrenia: No - Patient Surgical History Past Surgical History: Yes Hx Neurologic Surgery: No Hx Cataract Extraction: No Hx Cardiac Surgery: No Hx Lung Surgery: No Hx Breast Surgery: No Hx Breast Biopsy: No Hx Abdominal Surgery: No Hx Appendectomy: No Hx Cholecystectomy: No Hx Genitourinary Surgery: No Hx Section: No Hx Orthopedic Surgery: No Other Surgical History: REMOVAL OF PROSTATE CA Anesthesia Reaction: Yes - Smoking Cessation Smoking history: Current every day smoker Have you smoked in the past 12 months: Yes Aproximately how many cigarettes per day: 10 Cigars Per Day: 0 Hx Chewing Tobacco Use: No Initiated information on smoking cessation: Yes 'Breaking Loose' booklet given: 05/18/19 - Substances abused Heroin Substance route: Inhalation Frequency: Daily Amount used: 15 BAGS Age of first use: 19 Date of last use: 05/18/19 Alcohol Substance route: Oral Frequency: Daily Amount used: 40 OUNCES OF BEER Age of first use: 10 Date of last use: 05/17/19 Admission Physical Exam BHS - Vital Signs Vital Signs: Vital Signs - 24 hr 05/18/19 09:10 Temperature 97.4 F L Pulse Rate 80 Respiratory 20 Rate Blood Pressure 158/84 - Physical General Appearance: Yes: Disheveled, Mild Distress HEENTM: Yes: EOMI, Hearing grossly Normal, Normal ENT Inspection, Normal Voice, BETTY, Pharynx Normal, Tm's normal Respiratory: Yes: Chest Non-Tender, Lungs Clear, Normal Breath Sounds, No Respiratory Distress, No Accessory Muscle Use Neck: Yes: No masses,lesions,Nodules, Supple, Trachea in good position Breast: Yes: Within Normal Limits Cardiology: Yes: Regular Rhythm, S1, S2, Tachycardia Abdominal: Yes: Increased Bowel Sounds, Protuberent Genitourinary: Yes: Within Normal Limits Back: Yes: Normal Inspection Musculoskeletal: Yes: full range of Motion, Gait Steady, Pelvis Stable, Back pain Extremities: Yes: Normal Capillary Refill, Normal Inspection, Normal Range of Motion, Non-Tender Neurological: Yes: church administrator II-XII NML intact, Fully Oriented, Alert, Motor Strength 5/5, Normal Mood/Affect Integumentary: Yes: Normal Color, Warm Lymphatic: Yes: Within Normal Limits - Diagnostic (1) Alcohol dependence with uncomplicated withdrawal Current Visit: Yes Status: Acute (2) Dry mucous membranes Current Visit: Yes Status: Acute (3) Opioid dependence with withdrawal Current Visit: Yes Status: Acute (4) History of positive PPD Current Visit: Yes Status: Chronic Comment: HISTORY OF +PPD. PROVIDED A REPORT FROM 11/29/17 CXR. RESULTS: NO ACTIVE PULMONARY PROCESS. (5) History of prostate cancer Current Visit: Yes Status: Chronic (6) Nicotine dependence Current Visit: Yes Status: Chronic Qualifiers: Nicotine product type: cigarettes Substance use status: uncomplicated Qualified Code(s): F17.210 - Nicotine dependence, cigarettes, uncomplicated [facility] Level of Care: Medically Managed Detox Regimen/Protocol: Methadone/Librium Claeared for Rehab Admission: No Breathalyzer - Breathalyzer Breathalyzer: 0 Urine Drug Screen - Test Device Lot number: [id number] Expiration date: 01/11/21 - Control Is test valid?: Yes - Results Drug screen NEGATIVE: No Urine drug screen results: MET-Methamphetamine, FEN-Fentanyl, MOP-Opiates, OXY- Oxycodone Inpatient Rehab Admission - Rehab Decision to Admit Inpatient rehab admission?: No
[2019-05-18] MEDS ORDERED: chlordiazePOXIDE HCL 10 MG CAPSULE PO PRN (10:05)
[2019-05-18] MEDS ORDERED: BISMUTH SUBSALICYLATE 524 MG/30 ML UD PO PRN (10:05)
[2019-05-18] MEDS ORDERED: MAGNESIUM HYDROX 2400MG/30ML ORAL SUSPENSION 30 ML CUP PO PRN (10:05)
[2019-05-18] MEDS ORDERED: MENTHOL/PHENOL 1 EACH UD MM PRN (10:05)
[2019-05-18] MEDS ORDERED: cloNIDine HCL 0.1 MG TABLET PO PRN (10:05)
[2019-05-18] MEDS ORDERED: METHOCARBAMOL 500 MG TABLET PO PRN (10:05)
[2019-05-18] MEDS ORDERED: MELATONIN 5 MG TABLETS PO PRN (10:05)
[2019-05-18] MEDS ORDERED: IBUPROFEN 400 MG TABLET (FP) PO PRN (10:05)
[2019-05-18] MEDS ORDERED: MAG HYDROX/AL HYDROX/SIMETH 30 ML UNIT-DOSE CUP PO PRN (10:05)
[2019-05-18] MEDS ORDERED: ACETAMINOPHEN 325 MG TABLET (FP) PO PRN ×2 (10:05)
[2019-05-18] MEDS ORDERED: MAGNESIUM CITRATE 300 ML BOTTLE PO PRN (10:05)
[2019-05-18] MEDS ORDERED: hydrOXYzine PAMOATE 25 MG CAPSULE (FP) PO PRN (10:05)
[2019-05-18] MEDS ORDERED: COLLOIDAL OATMEAL 1 BAR EACH TP PRN (10:07)
[2019-05-18] MEDS ORDERED: METHADONE HCL 10 MG TABLET (FOR DETOX USE ONLY) PO ONE (10:25)
[2019-05-18 11:56] LABS: HEMATOCRIT 34.2 % (35.4-49); HEMOGLOBIN 11.7 GM/dL (11.7-16.9); MCH 27.8 pg (25.7-33.7); MCHC 34.1 g/dl (32.0-35.9); MEAN CELL VOLUME 81.5 fl (80-96); MEAN PLT VOLUME 7.1 fl (7.5-11.1); PLATELET COUNT 339 K/MM3 (134-434); RDW 16.2 % (11.9-15.9); WHITE BLOOD COUNT 4.4 K/mm3 (4.0-10.0)
[2019-05-18 12:15] LABS: ALBUMIN 3.5 g/dl (3.4-5.0); BILIRUBIN,TOTAL 0.4 mg/dL (0.2-1); BLOOD UREA NITROGEN 13.4 mg/dL (7-18); CALCIUM 8.8 mg/dL (8.5-10.1); CREATININE 1.1 mg/dL (0.55-1.3); TOT PROT 7.6 g/dl (6.4-8.2)
[2019-05-18] MEDS: chlordiazePOXIDE HCL 25 MG CAPSULE PO SCH ×2 (14:00→22:22)
[2019-05-18] MEDS: THIAMINE HCL 100 MG TABLET (FP) PO SCH (22:22)
[2019-05-18] MEDS: BACITRACIN 15 GM TUBE TOPICAL OINTMENT TP SCH (22:26)
[2019-05-18] MEDS: MINERAL OIL/PET HY-PHL TOPICAL OINTMENT 454 GM JAR TP SCH (22:27)
[2019-05-19] MEDS ORDERED: TRIMETHOBENZAMIDE HCL 200MG/2ML INJ IM ONE (05:05)
--- NOTE | 2019-05-19 05:07 | PN ---
S Progress Note Note: Patient vomited x 2 Vital Signs Temperature 97.9 F 05/18/19 20:32 Pulse Rate 72 05/18/19 20:32 Respiratory Rate 18 05/19/19 03:30 Blood Pressure 143/88 05/18/19 20:32 O2 Sat by Pulse Oximetry (%) Action:Tigan 200mg IM ordered
[2019-05-19] MEDS: chlordiazePOXIDE HCL 25 MG CAPSULE PO SCH ×3 (06:15→22:36)
[2019-05-19] MEDS ORDERED: METHADONE HCL 5 MG TABLET (FOR DETOX USE ONLY) ONE (09:42)
[2019-05-19] MEDS ORDERED: METHADONE HCL 10 MG TABLET (FOR DETOX USE ONLY) ONE (09:42)
[2019-05-19] MEDS ORDERED: METHADONE (DETOX) 20 MG, METHADONE (DETOX) 5 MG PO ONE (10:00)
[2019-05-19] MEDS: BACITRACIN 15 GM TUBE TOPICAL OINTMENT TP SCH ×2 (10:09→22:36)
[2019-05-19] MEDS: PRENATAL VITAMINS W/ FOLIC ACID TABLET (FP) PO SCH (10:09)
[2019-05-19] MEDS: MINERAL OIL/PET HY-PHL TOPICAL OINTMENT 454 GM JAR TP SCH ×2 (10:20→22:36)
[2019-05-19] MEDS: NICOTINE 14 MG/24 HOURS TOPICAL PATCH TD SCH (10:25)
--- NOTE | 2019-05-19 11:46 | PN ---
[facility] CIWA - CIWA Score Nausea/Vomitin-Mild Nausea/No Vomiting Muscle Tremors: 2 Anxiety: 2 Agitation: 2 Paroxysmal Sweats: No Perspiration Orientation: 0-Oriented Tacttile Disturbances: 1-Very Mild Itch/Numbness Auditory Disturbances: 0-None Visual Disturbances: 0-None Headache: 2-Mild CIWA-Ar Total Score: 10 BHS COWS - Scale Resting Pulse: 1= [place] 81-100 Sweatin= No chills or Flushing Restless Observation: 1= Difficult to Sit Still Pupil Size: 1= Pupils >than Normal Bone or Joint Aches: 1= Mild Discomfort Runny Nose/ Eye Tearin= Nasal Congestion GI Upset > 30mins: 2= Nausea/Diarrhea Tremor Observation of Outstretched Hands: 1= Tremor [place], Not Seen Yawning Observation: 1= 1-2x During Session Anxiety or Irritability: 2=Irritable/Anxious Goose Flesh Skin: 0=Smooth Skin COWS Score: 11 [facility] Progress Note (SOAP) Subjective: alert,irritable,anxious,interrupted sleep,pain in the body Objective: 05/19/19 11:43 Vital Signs Temperature 97.2 F L 05/19/19 09:17 Pulse Rate 93 H 05/19/19 09:17 Respiratory Rate 20 05/19/19 09:17 Blood Pressure 150/91 05/19/19 09:17 O2 Sat by Pulse Oximetry (%) 05/19/19 11:44 Laboratory Last Values WBC 4.4 K/mm3 (4.0-10.0) 05/18/19 10:30 RBC 4.20 M/mm3 (4.00-5.60) 05/18/19 10:30 Hgb 11.7 GM/dL (11.7-16.9) 05/18/19 10:30 Hct 34.2 % (35.4-49) L 05/18/19 10:30 MCV 81.5 fl (80-96) 05/18/19 10:30 MCH 27.8 pg (25.7-33.7) 05/18/19 10:30 MCHC 34.1 g/dl (32.0-35.9) 05/18/19 10:30 RDW 16.2 % (11.9-15.9) H 05/18/19 10:30 Plt Count 339 K/MM3 (134-434) 05/18/19 10:30 MPV 7.1 fl (7.5-11.1) L 05/18/19 10:30 Sodium 135 mmol/L (136-145) L 05/18/19 10:30 Potassium 4.0 mmol/L (3.5-5.1) 05/18/19 10:30 Chloride 103 mmol/L (98-107) 05/18/19 10:30 Carbon Dioxide 26 mmol/L (21-32) 05/18/19 10:30 Anion Gap 7 MMOL/L (8-16) L 05/18/19 10:30 BUN 13.4 mg/dL (7-18) 05/18/19 10:30 Creatinine 1.1 mg/dL (0.55-1.3) 05/18/19 10:30 Est GFR (CKD-EPI)AfAm 86.52 05/18/19 10:30 Est GFR (CKD-EPI)NonAf 74.65 05/18/19 10:30 Random Glucose 138 mg/dL (74-106) H 05/18/19 10:30 Calcium 8.8 mg/dL (8.5-10.1) 05/18/19 10:30 Total Bilirubin 0.4 mg/dL (0.2-1) 05/18/19 10:30 AST 18 U/L (15-37) 05/18/19 10:30 ALT 19 U/L (13-61) 05/18/19 10:30 Alkaline Phosphatase 67 U/L (45-117) 05/18/19 10:30 Total Protein 7.6 g/dl (6.4-8.2) 05/18/19 10:30 Albumin 3.5 g/dl (3.4-5.0) 05/18/19 10:30 RPR Titer Nonreactive (NONREACTIVE) 05/18/19 10:30 Assessment: 05/19/19 11:45 withdrawal symptom Plan: continue detox methadone and librium regimen,na is 135,glucose 138, fasting glucose in am,repeat bmp in am
[2019-05-19] MEDS: THIAMINE HCL 100 MG TABLET (FP) PO SCH (22:36)
[2019-05-20] MEDS: chlordiazePOXIDE 5 MG CAPSULE PO SCH ×3 (06:06→22:15)
[2019-05-20] MEDS ORDERED: METHADONE HCL 10 MG TABLET (FOR DETOX USE ONLY) PO ONE (10:00)
--- NOTE | 2019-05-20 10:58 | PN ---
[facility] CIWA - CIWA Score Nausea/Vomitin-Mild Nausea/No Vomiting Muscle Tremors: 1-None Visible, but [place] Anxiety: 2 Agitation: 2 Paroxysmal Sweats: No Perspiration Orientation: 0-Oriented Tacttile Disturbances: 0-None Auditory Disturbances: 0-None Visual Disturbances: 0-None Headache: 1-Very Mild CIWA-Ar Total Score: 7 [facility]HS COWS - Scale Resting Pulse: 0= [place] 80 or Below Sweatin= No chills or Flushing Restless Observation: 1= Difficult to Sit Still Pupil Size: 1= Pupils >than Normal Bone or Joint Aches: 1= Mild Discomfort Runny Nose/ Eye Tearin= Nasal Congestion GI Upset > 30mins: 1= Stomach Cramp Tremor Observation of Outstretched Hands: 1= Tremor [place], Not Seen Yawning Observation: 1= 1-2x During Session Anxiety or Irritability: 2=Irritable/Anxious Goose Flesh Skin: 0=Smooth Skin COWS Score: 9 S Progress Note (SOAP) Subjective: alert,irritable,anxious,interrupted sleep,pain in the body Objective: 05/20/19 10:55 Vital Signs Temperature 98.9 F 05/20/19 09:17 Pulse Rate 75 05/20/19 09:17 Respiratory Rate 20 05/20/19 09:17 Blood Pressure 167/83 05/20/19 09:17 O2 Sat by Pulse Oximetry (%) 05/20/19 10:57 patient refused fastin glucose this am Assessment: 05/20/19 10:57 withdrawal symptom Plan: continue detox methadone and librium regimen,bgm daily,patient refused fasting glucose
[2019-05-20] MEDS: BACITRACIN 15 GM TUBE TOPICAL OINTMENT TP SCH ×2 (11:04→23:06)
[2019-05-20] MEDS: PRENATAL VITAMINS W/ FOLIC ACID TABLET (FP) PO SCH (11:05)
[2019-05-20] MEDS: MINERAL OIL/PET HY-PHL TOPICAL OINTMENT 454 GM JAR TP SCH ×2 (11:05→23:06)
[2019-05-20] MEDS: NICOTINE 14 MG/24 HOURS TOPICAL PATCH TD SCH (11:05)
[2019-05-20] MEDS: THIAMINE HCL 100 MG TABLET (FP) PO SCH (23:04)
[2019-05-21] MEDS ORDERED: chlordiazePOXIDE HCL 10 MG CAPSULE PO PRN
[2019-05-21] MEDS ORDERED: chlordiazePOXIDE HCL 10 MG CAPSULE PO SCH (05:00)
[2019-05-21] MEDS ORDERED: METHADONE HCL 5 MG TABLET (FOR DETOX USE ONLY) ONE (09:26)
[2019-05-21] MEDS ORDERED: METHADONE HCL 10 MG TABLET (FOR DETOX USE ONLY) ONE (09:27)
[2019-05-21] MEDS ORDERED: METHADONE (DETOX) 10 MG, METHADONE (DETOX) 5 MG PO ONE (10:00)
--- NOTE | 2019-05-21 10:02 | PN ---
[facility] CIWA - CIWA Score Nausea/Vomitin-Mild Nausea/No Vomiting Muscle Tremors: 1-None Visible, but [place] Anxiety: 2 Agitation: 2 Paroxysmal Sweats: No Perspiration Orientation: 0-Oriented Tacttile Disturbances: 0-None Auditory Disturbances: 0-None Visual Disturbances: 0-None Headache: 1-Very Mild CIWA-Ar Total Score: 7 S COWS - Scale Resting Pulse: 1= [place] 81-100 Sweatin= No chills or Flushing Restless Observation: 1= Difficult to Sit Still Pupil Size: 1= Pupils >than Normal Bone or Joint Aches: 1= Mild Discomfort Runny Nose/ Eye Tearin= Nasal Congestion GI Upset > 30mins: 1= Stomach Cramp Tremor Observation of Outstretched Hands: 1= Tremor [place], Not Seen Yawning Observation: 1= 1-2x During Session Anxiety or Irritability: 2=Irritable/Anxious Goose Flesh Skin: 0=Smooth Skin COWS Score: 10 [facility] Progress Note (SOAP) Subjective: alert,irritable,anxious,interrupted sleep,pain in the body Objective: 05/21/19 10:00 Vital Signs Temperature 96.8 F L 05/20/19 22:00 Pulse Rate 85 05/20/19 22:00 Respiratory Rate 18 05/21/19 03:30 Blood Pressure 167/90 05/20/19 22:00 O2 Sat by Pulse Oximetry (%) Assessment: 05/21/19 10:01 withdrawal symptom Plan: continue detox methadone and librium regimen
[2019-05-21 10:17] VITALS: BP 150/94; PULSE 90; TEMP 98.6
[2019-05-21] MEDS: PRENATAL VITAMINS W/ FOLIC ACID TABLET (FP) PO SCH (10:25)
[2019-05-21] MEDS: MINERAL OIL/PET HY-PHL TOPICAL OINTMENT 454 GM JAR TP SCH (10:25)
[2019-05-21] MEDS: BACITRACIN 15 GM TUBE TOPICAL OINTMENT TP SCH (10:25)
[2019-05-21] MEDS: NICOTINE 14 MG/24 HOURS TOPICAL PATCH TD SCH (10:25)
--- NOTE | 2019-05-21 12:43 | PN ---
[facility] Progress Note Note: patient did not want to complete treatment,high risk of relapsing explained, patient understood, signed release ama,advise to call 911 if not feeling well
--- NOTE | 2019-05-21 12:48 | DS ---
[facility] Detox Discharge Summary Admission Date: 05/18/19 Discharge Date: 05/21/19 - History Present History: Alcohol Dependence, Opioid Dependence Additional Comments: patient signed ama Pertinent Past History: cancer of prostate nicotine dependence - Physical Exam Results Vital Signs: Vital Signs Temperature 98.6 F 05/21/19 10:17 Pulse Rate 90 05/21/19 10:17 Respiratory Rate 19 05/21/19 10:17 Blood Pressure 150/94 05/21/19 10:17 O2 Sat by Pulse Oximetry (%) Pertinent Admission Physical Exam Findings: withdrawal signs and symptom Laboratory Last Values WBC 4.4 K/mm3 (4.0-10.0) 05/18/19 10:30 RBC 4.20 M/mm3 (4.00-5.60) 05/18/19 10:30 Hgb 11.7 GM/dL (11.7-16.9) 05/18/19 10:30 Hct 34.2 % (35.4-49) L 05/18/19 10:30 MCV 81.5 fl (80-96) 05/18/19 10:30 MCH 27.8 pg (25.7-33.7) 05/18/19 10:30 MCHC 34.1 g/dl (32.0-35.9) 05/18/19 10:30 RDW 16.2 % (11.9-15.9) H 05/18/19 10:30 Plt Count 339 K/MM3 (134-434) 05/18/19 10:30 MPV 7.1 fl (7.5-11.1) L 05/18/19 10:30 Sodium 135 mmol/L (136-145) L 05/18/19 10:30 Potassium 4.0 mmol/L (3.5-5.1) 05/18/19 10:30 Chloride 103 mmol/L (98-107) 05/18/19 10:30 Carbon Dioxide 26 mmol/L (21-32) 05/18/19 10:30 Anion Gap 7 MMOL/L (8-16) L 05/18/19 10:30 BUN 13.4 mg/dL (7-18) 05/18/19 10:30 Creatinine 1.1 mg/dL (0.55-1.3) 05/18/19 10:30 Est GFR (CKD-EPI)AfAm 86.52 05/18/19 10:30 Est GFR (CKD-EPI)NonAf 74.65 05/18/19 10:30 Random Glucose 138 mg/dL (74-106) H 05/18/19 10:30 Calcium 8.8 mg/dL (8.5-10.1) 05/18/19 10:30 Total Bilirubin 0.4 mg/dL (0.2-1) 05/18/19 10:30 AST 18 U/L (15-37) 05/18/19 10:30 ALT 19 U/L (13-61) 05/18/19 10:30 Alkaline Phosphatase 67 U/L (45-117) 05/18/19 10:30 Total Protein 7.6 g/dl (6.4-8.2) 05/18/19 10:30 Albumin 3.5 g/dl (3.4-5.0) 05/18/19 10:30 RPR Titer Nonreactive (NONREACTIVE) 05/18/19 10:30 Vital Signs Temperature 98.6 F 05/21/19 10:17 Pulse Rate 90 05/21/19 10:17 Respiratory Rate 19 05/21/19 10:17 Blood Pressure 150/94 05/21/19 10:17 O2 Sat by Pulse Oximetry (%) - Medication Discharge Medications: Ambulatory Orders NK [No Known Home Medication] 03/19/18 - Diagnosis (1) Opioid dependence with withdrawal Status: Acute (2) Alcohol dependence with uncomplicated withdrawal Status: Acute (3) Cannabis abuse, uncomplicated Status: Chronic (4) Cocaine abuse, uncomplicated Status: Chronic (5) History of prostate cancer Status: Chronic (6) Nicotine dependence Status: Chronic Qualifiers: Nicotine product type: cigarettes Substance use status: uncomplicated Qualified Code(s): F17.210 - Nicotine dependence, cigarettes, uncomplicated - AMA Did Patient Leave Against Medical Advice: Yes
[2019-05-22] MEDS ORDERED: chlordiazePOXIDE HCL 10 MG CAPSULE PO ONE (05:00)
[2019-05-22] MEDS ORDERED: METHADONE HCL 10 MG TABLET (FOR DETOX USE ONLY) PO ONE (10:00)
[2019-05-23] MEDS ORDERED: METHADONE HCL 5 MG TABLET (FOR DETOX USE ONLY) PO ONE (06:00)
== END 2019-05-21 10:50 | disposition left against medical advice (07) | DRG 770 ==
LOC: YASAS 08:47 → Y6N 10:16
PROVIDERS: ADMIT Allergy & Immunology; ATTEND Allergy & Immunology
PROC: HZ2ZZZZ Detoxification Services for Substance Abuse Treatment (ICD-10-PCS; principal; 2019-05-18)
DX: F11.23 Opioid dependence with withdrawal (principal); F10.230 Alcohol dependence with withdrawal, uncomplicated; F14.10 Cocaine abuse, uncomplicated; F12.10 Cannabis abuse, uncomplicated; F17.210 Nicotine dependence, cigarettes, uncomplicated; R76.11 Nonspecific reaction to tuberculin skin test without active tuberculosis; Z85.46 Personal history of malignant neoplasm of prostate; Z90.79 Acquired absence of other genital organ(s); Z91.018 Allergy to other foods; Z59.0 Homelessness
CPT/HCPCS: 36415; 80053; 85027; 86593